=== PATIENT | male | born 1965 | race Caucasian/White ===

== ENCOUNTER → 2017-10-21 09:52 | Outpatient (POV) | payer OTHER, SELFPAY | PROVIDERS: Family Provider Family Medicine; PCP Family Medicine; Visit Provider Internal Medicine | DX: Z00.00 Encounter for general adult medical examination without abnormal findings (principal) ==

== ENCOUNTER → 2017-11-12 08:11 | Outpatient (CLI) | payer OTHER, SELFPAY ==
--- NOTE | 2017-11-12 08:26 | CT_ITS ---
CT chest wo con HISTORY: Emphysema, shortness of breath, ITS.REASON: ABNORMAL FINDINGS ON LUNG IMAGING ORDERING PHYSICIAN: Sergio Mckenzie MD PATIENT AGE: 52 years TECHNIQUE: Axial images obtained. Sagittal and coronal reformatted images are also generated and reviewed. CONTRAST: None COMPARISON: CT chest 02/04/2014 FINDINGS: Scattered small lymph nodes are present in the mediastinum not significantly changed. There is mild prominence of the pulmonary outflow tract and pulmonary artery/aorta ratio greater than 1 which may be seen with pulmonary arterial hypertension. The heart size is normal. No evidence of pericardial effusion. Centrilobular and paraseptal emphysematous changes are present with hyperinflation and bronchial thickening consistent with obstructive chronic bronchitis. There is biapical scarring which is slightly more prominent on the left than the right. Irregular opacity is present in the left apex measuring 14 mm transverse and 12 mm AP. This appears slightly more prominent than when compared to the previous study but could be related to progressive fibrotic change and the plane of imaging. Consider 6 month follow-up.. A calcified granulomas present in the left lung base. No lobar consolidation or collapse. No effusions. Upper abdominal images are unremarkable. No acute bony anomalies. IMPRESSION: 1. Centrilobular and paraseptal emphysematous changes with obstructive chronic bronchitis. 2. Biapical scarring. Slightly increasing size irregular opacity in the left apex which may limit due to progressive fibrotic change. Consider 6 month follow-up as a developing neoplasm such as a scar carcinoma would be included in the differential diagnosis. 3. Suspect pulmonary arterial hypertension
[2017-11-12 09:48] VITALS: BP 118/70; BP 140/80; PULSE 78; PULSE 98; RESP 18; O2SAT 95; O2SAT 98
[2017-11-12 09:49] VITALS: PULSE 73; PULSE 78
== END ==
PROVIDERS: Family Provider Family Medicine; PCP Family Medicine; Visit Provider Internal Medicine
DX: R91.8 Other nonspecific abnormal finding of lung field (principal); J43.9 Emphysema, unspecified; J44.9 Chronic obstructive pulmonary disease, unspecified; R06.02 Shortness of breath; Z71.6 Tobacco abuse counseling
CPT/HCPCS: 71250; 94060; 94618; 94640; 94726; 94729

== ENCOUNTER → 2018-02-13 10:14 | Outpatient (CLI) | payer OTHER, SELFPAY ==
--- NOTE | 2018-02-13 10:19 | XR_ITS ---
XR foot LT min 3V HISTORY: Pain following injury ITS.REASON: LEFT TOE INJURY ORDERING PHYSICIAN: LIA Oropeza PATIENT AGE: 52 years COMPARISON: None FINDINGS: There is a minimally displaced fracture involving the distal aspect of the proximal phalanx of the second toe. The distal fracture fragment is displaced laterally x 2 mm. There is minimal lateral angulation. Otherwise negative. IMPRESSION: Minimally displaced fracture involves the distal aspect of the proximal phalanx of the second toe
== END ==
PROVIDERS: PCP Family Medicine; Visit Provider Physician Assistant
DX: S99.922A Unspecified injury of left foot, initial encounter (principal)
CPT/HCPCS: 73630

== ENCOUNTER → 2018-11-17 13:52 | Outpatient (POV) | payer OTHER, SELFPAY | PROVIDERS: Visit Provider Internal Medicine | DX: Z00.00 Encounter for general adult medical examination without abnormal findings (principal) ==

== ENCOUNTER → 2019-04-02 13:04 | Outpatient (CLI) | payer OTHER, SELFPAY ==
--- NOTE | 2019-04-02 13:11 | CT_ITS ---
CT chest wo con INDICATION: Follow-up left apical lesion. ITS.REASON: EMPHYSEMA,ABN FINDINGS ON LUNG IMAGING ORDERING PHYSICIAN: Sergio Mckenzie MD PATIENT AGE: 53 years COMPARISON: ...) (11/12/2017 TECHNIQUE: Axial images obtained with sagittal and coronal reformats. All CT scans at the facility use one or more dose reduction, viz: automated exposure control, ma/kV adjustment per patient size (including targeted exams where dose is matched to indication, i.e. head), or iterative reconstruction technique. FINDINGS: The lung wen are somewhat hyperexpanded as noted previously. There are apical blebs bilaterally. The irregular left apical lesion is stable and unchanged and possibly slightly smaller size than the previous exam and most consistent with post inflammatory scarring. Findings of centrilobular emphysema are seen primarily in the upper lobes with a few areas of paraseptal emphysematous change noted as well. Again noted is a somewhat prominent main pulmonary artery raising possibility of pulmonary arterial hypertension. Cardiac size is normal. There is no acute pneumonic infiltrate and is no pleural fluid. There are stable mild multilevel degenerative changes of the thoracic spine. IMPRESSION: 1. Left apical lesion stable and possibly slightly decreased in size from the previous exam and most consistent with post inflammatory scarring. 2. Basically stable moderate emphysematous changes. 3. Main pulmonary artery and aorta ratio again greater than 1 suggesting possible pulmonary arterial hypertension
== END ==
PROVIDERS: PCP Family Medicine; Visit Provider Internal Medicine
DX: J43.9 Emphysema, unspecified (principal); R91.8 Other nonspecific abnormal finding of lung field
CPT/HCPCS: 71250

== ENCOUNTER → 2019-05-11 09:09 | Outpatient (POV) | payer OTHER, SELFPAY | PROVIDERS: Visit Provider Internal Medicine | DX: Z00.00 Encounter for general adult medical examination without abnormal findings (principal) ==

== ENCOUNTER → 2020-03-21 08:23 | Outpatient (CLI) | payer OTHER, SELFPAY ==
--- NOTE | 2020-03-21 08:36 | CT_ITS ---
PROCEDURE: CT LUNG SCREENING CLINICAL INDICATION: HX OF TOBACCO USE 38 pack year smoking history Quit smoking 7 years ago COMPARISON: CHESTWO CT chest wo con from 04/02/2019 TECHNIQUE: The exam was performed on a [employer] Light Speed [address] scanner using 2.90 mGy CTDI. A low dose helical CT CHEST was performed on a multi-detector scanner. All CT scans at the facility use one or more dose reduction, viz: automated exposure control, ma/kV adjustment per patient size (including targeted exams where dose is matched to indication, i.e. head), or iterative reconstruction technique. The LDCT was performed in a facility that meets the criteria for the screening program. Data regarding this exam was submitted to ACR which is an approved registry. The order for this exam indicates that it came as a result of a lung cancer screening counseling shard decision-making visit that included all the elements required of such a visit including smoking cessation. The radiologist interpreting this exam meets the CMS criteria for the LDCT lung cancer screening program. The exam is reported using the Lung-RADS classification scale and reported to the ACR registry. NOTE: This study was performed for the specific purposes of lung cancer screening and is not an alternative to diagnostic chest CT. RADIATION DOSE: CTDI vol(CT dose Index-volume) = 2.90mG DLP (Dose Length Product) = 124.81 mGcm Lung Rads Category: FINDINGS: COPD with centrilobular and paraseptal emphysema with scattered areas of scarring. Irregular opacity is present in the left apex consistent with an area of scarring similar to the previous exam. No new suspicious nodules. OTHER FINDINGS: Stable mildly prominent mediastinal lymph nodes. IMPRESSION: Lung rads category 2 benign Recommend annual LDCT Dictated by: Alex Arroyo MD 03/26/2020 09:52 Electronically signed by Alex Arroyo MD in [place] 03/26/2020 09:52
== END ==
PROVIDERS: PCP Family Medicine; Visit Provider Nurse Practitioner Family
DX: Z87.891 Personal history of nicotine dependence (principal); Z12.2 Encounter for screening for malignant neoplasm of respiratory organs

== ENCOUNTER 2020-12-12 22:25 | Emergency (ER) | payer OTHER, SELFPAY ==
[2020-12-12 22:27] VITALS: BP 128/70; PULSE 75; RESP 16; TEMP 36.6; O2SAT 97; BMI 28.0
--- NOTE | 2020-12-12 22:29 | HMH.EDGENADL ---
ED Disposition Clinical Impression: Ulna distal fracture Qualifiers: Encounter type: initial encounter Fracture type: closed Fracture morphology: other fracture Laterality: left Qualified Code(s): S52.692A - Other fracture of lower end of left ulna, initial encounter for closed fracture Disposition: Home, Self-Care Condition on Discharge: Good Referrals: Lillian Weldon MD [Primary Care Provider] - 3 days Ernestina Wooten MD [Physician] - 12/13/20 8:30 am (call in the AM) Time of Disposition: 23:03 - Critical Care Critical Care Time: No Attestation: On , the high probability of a clinically significant, sudden or life threatening deterioration of the following system(s) required my full and direct attention, intervention and personal management. The time I documented below is in addition to time spent performing reported procedures but includes the following listed in this critical care notation. Medical Decision Making - Medical Records Medical records reviewed: Yes: I reviewed the patient's medical records. - Reg Inquiry Pt receiving controlled substance: No Vital Signs: 12/12/20 22:27 Temperature 98 F Temperature Source Oral Pulse Rate [Right] 75 Respiratory Rate 16 Blood Pressure [Right Arm] 128/70 Blood Pressure Mean [Right Arm] 89 02 Sat by Pulse Oximetry 97 Oxygen Delivery Method Room Air Orders (Tests/Meds): ED MEDICATIONS Discontinued Medications Generic Name Dose Route Start Last Admin Trade Name Freq PRN Reason Stop Dose Admin Ketorolac Tromethamine 60 mg 12/12/20 22:36 12/12/20 22:38 Ketorolac 60mg/2ml Vial IM 12/12/20 22:37 60 mg ONCE ONE Administration ORDERS Category Date Time Status XR wrist LT min 3V Stat Exams 12/12/20 22:35 Ordered - Radiology Data #1 Image(s): Forearm Image Reviewed: Yes I reviewed the patient's radiology image Preliminary Findings: Abnormal Distal ulnar fracture Medical Decision Narrative: 55yo M evaluated for left wrist pain. Patient is in no acute distress on initial evaluation. X-rays reveal fracture of the distal ulna. Patient is placed in a volar splint. Provided orthopedics information for follow-up in the next 1 to 2 days. General Adult HPI - General Stated complaint: [id number]/30@2130 injury left wrist Time Seen by Provider: 12/12/20 22:29 Mode of Arrival: Ambulatory Source of Information: Patient - History of Present Illness HPI narrative: 55yo M evaluated emergency department secondary to left wrist pain. Patient is right-hand dominant. He reports he was breaking up a fight between 2 dogs when he accidentally hit his left arm on a countertop in the kitchen. He denies any other injury. Denies any dog bite or dog scratch. Prior to this, he was in his usual state of health. - Related Data Previous Rx's Medication Instructions Recorded albuterol sulfate 90 mcg/actuation 1 inh INHALATION QID PRN #8.5 g 11/20/20 aerosol inhaler fluticasone propionate 50 1 spray INTRANASAL DAILY #16 g 11/20/20 mcg/actuation nasal spray,suspension loratadine 10 mg tablet 10 mg PO DAILY PRN #30 tab 11/20/20 umeclidinium 62.5 mcg-vilanterol 1 inh INHALATION DAILY #60 each 11/20/20 25 mcg/actuation powdr for inhalation Allergies Allergy/AdvReac Type Severity Reaction Status Date / Time No Known Allergies Allergy Verified 11/20/20 11:07 [facility] History - Hepatitis A Screen Drug use history?: No Attestation statement:: This patient has been screened for Hepatitis A risk factors. I have reviewed the patient's past medical history: Yes Medical History: Reports:: Lung Disease Denies:: Diabetes Mellitus Type 1, Diabetes Mellitus Type 2, Seizures Other Surgeries: Yes: No Previous Surgery - Social History Smoking Status: Current every day smoker Alcohol Intake: never Occupational Status: employed Family Hx:: No significant family history ROS Obtained: Yes All systems reviewed & no additional compl
--- NOTE | 2020-12-12 22:35 | XR_ITS ---
PROCEDURE: XR WRIST LT MIN 3V CLINICAL INDICATION: accident COMPARISON: CR WRL3 WRIST-3 VIEWS-LT from 06/03/2016 CR WRL3 WRIST-3 VIEWS-LT from 06/17/2016 CR WRL3 WRIST-3 VIEWS-LT from 07/08/2016 FINDINGS: Undisplaced oblique fracture of the distal ulna is noted. No evidence of intra-articular extension into the distal radioulnar joint. The radiocarpal alignment is unremarkable. The visualized carpal bones are unremarkable. No significant degenerative changes. Soft tissue swelling adjacent to the ulnar aspect of the left IMPRESSION: Undisplaced oblique fracture of the left distal ulna. Results were discussed with Dr. Hernandez at 8:50 a.m. on December 13, 2020. Dictated by: Jill Aguirre 12/13/2020 08:53 Jill Aguirre in [place] 12/13/2020 08:53
[2020-12-12 23:01] VITALS: BP 123/74; PULSE 73; RESP 18; TEMP 36.8; O2SAT 98
== END 2020-12-12 23:18 | disposition home or self-care (01) ==
PROVIDERS: Emergency Provider Family Medicine; PCP Family Medicine
DX: S52.692A Other fracture of lower end of left ulna, initial encounter for closed fracture (principal); W22.09XA Striking against other stationary object, initial encounter; Y92.010 Kitchen of single-family (private) house as the place of occurrence of the external cause; F17.210 Nicotine dependence, cigarettes, uncomplicated
CPT/HCPCS: 29125; 73110; 96372; 99282

== ENCOUNTER → 2020-12-14 10:24 | Outpatient (CLI) | payer OTHER, SELFPAY ==
--- NOTE | 2020-12-14 10:27 | XR_ITS ---
PROCEDURE: XR FOREARM LT 2V CLINICAL INDICATION: left distal ulna fracture; IN CAST COMPARISON: CR XR WRIST LT MIN 3V from 12/12/2020 FINDINGS: The presence of cast limits evaluation for bony detail. The fracture noted on the prior study is not well visualized on the current limited study. The distal radioulnar joint appears unremarkable. Radiocarpal alignment is unremarkable within the limitations of the study. No other significant abnormality. IMPRESSION: No significant interval change within the limitations of the study. Dictated by: Jill Aguirre 12/14/2020 11:23 Jill Aguirre in [place] 12/14/2020 11:23
== END ==
PROVIDERS: PCP Family Medicine; Visit Provider Orthopaedic Surgery
DX: S52.609A Unspecified fracture of lower end of unspecified ulna, initial encounter for closed fracture (principal)
CPT/HCPCS: 73090

== ENCOUNTER → 2021-01-10 09:10 | Outpatient (CLI) | payer OTHER, SELFPAY ==
--- NOTE | 2021-01-10 09:15 | XR_ITS ---
PROCEDURE: XR WRIST RT MIN 3V CLINICAL INDICATION: rt wrist pain COMPARISON: CR WRL3 WRIST-3 VIEWS-LT from 06/03/2016 CR WRL3 WRIST-3 VIEWS-LT from 06/17/2016 CR WRL3 WRIST-3 VIEWS-LT from 07/08/2016 CR XR WRIST LT MIN 3V from 12/12/2020 FINDINGS: No fracture or dislocation. No lytic or blastic change. There is normal mineralization. The joint spaces are well-preserved. No significant degenerative/arthritic changes. No erosive changes evident. Other findings:None. IMPRESSION: No acute findings. Dictated by: Alex Arroyo MD 01/10/2021 09:40 Alex Arroyo MD in [place] 01/10/2021 09:40
--- NOTE | 2021-01-10 09:15 | XR_ITS ---
PROCEDURE: XR FOREARM LT 2V CLINICAL INDICATION: Closed fracture of distal end of left ulna COMPARISON: CR XR FOREARM LT 2V from 12/14/2020 FINDINGS: Cast has been removed. Nondisplaced oblique fracture once again noted involving the distal ulna. The wrist is rotated. The radial ulnar joint is not well delineated. Other findings:None. IMPRESSION: Interval removal of the cast. Nondisplaced oblique fracture distal ulna Dictated by: Alex Arroyo MD 01/10/2021 09:42 Alex Arroyo MD in [place] 01/10/2021 09:42
== END ==
PROVIDERS: PCP Family Medicine; Visit Provider Orthopaedic Surgery
DX: S52.602A Unspecified fracture of lower end of left ulna, initial encounter for closed fracture (principal); M25.531 Pain in right wrist
CPT/HCPCS: 73090; 73110

== ENCOUNTER 2021-01-10 10:15 | Outpatient (RCR) | payer OTHER, SELFPAY | END 2021-01-19 14:04 | disposition home or self-care (01) | LOC: OT 10:15 | PROVIDERS: Visit Provider Orthopaedic Surgery | DX: S52.602D Unspecified fracture of lower end of left ulna, subsequent encounter for closed fracture with routine healing (principal) | CPT/HCPCS: 97763 ==

== ENCOUNTER 2021-02-19 10:00 | Outpatient (RCR) | payer OTHER, SELFPAY ==
--- NOTE | 2021-01-15 09:45 | HMH.OTOPEV ---
OT Inpatient Evaluation Rehab OT Outpatient Eval Start: 01/15/21 09:29 Freq: Status: Active Protocol: Document 01/15/21 09:29 GLENDA (Rec: 01/15/21 09:45 BERNYYUE [id number]) Electronically Signed By Leslie Guerin OT 01/15/21 09:29 Outpatient Therapy Subjective History Subjective History LT distal ulna fracture: Details: This 55 year old right hand dominant male patient is seen in the office today for follow-up for his left distal ulna fracture. He sustained the injury about 4 weeks ago for which he is being treated nonoperatively in a long-arm cast. He is out of the cast today and had a check x-ray. He reports no problems with the cast. He says the elbow and wrist feel weird and stiff. He says he is doing well otherwise and reports no pain or discomfort. He reports no distal numbness or tingling. He is a former smoker. He has COPD. He is disabled. [facility] History *Medical History I have reviewed the patient's past medical history: Yes Medical History: Reports: Chronic Obstructive Pulmonary Disease (COPD) and Lung Disease Other Medical History: Reports Arthritis Chief Complaint Pain,Stiff,Weakness,Decreased Progress Man Strength Symptom Type Ache,Tingling Symptoms Relieved By OTC Meds Symptoms Aggravated By Physical Activity Prior Functional Limitations None Current Functional Limitations Lifting,Recreation Activity Symptom Description Intermittent Level of pain today (0-10) 0 Pain scale - at its best (0-10) 0 Pain scale - at its worst (0-10) 6 Wrist/Hand Eval Wrist Range of Motion Left Wrist Extension Active Range of Motion ( 52 degrees) Wrist Flexion Active Range of Motion ( 60 degrees) Wrist Radial Deviation Active Range of 15 Motion (degrees) Wrist Ulnar Deviation Active Range of 22 Motion (degrees) Forearm Supin
== END 2021-02-19 10:05 | disposition home or self-care (01) ==
LOC: OT 10:00
PROVIDERS: PCP Family Medicine; Visit Provider Orthopaedic Surgery
DX: S52.692D Other fracture of lower end of left ulna, subsequent encounter for closed fracture with routine healing (principal)
CPT/HCPCS: 97014; 97110; 97140; 97165; G0283

== ENCOUNTER → 2021-02-21 09:12 | Outpatient (CLI) | payer OTHER, SELFPAY ==
--- NOTE | 2021-02-21 09:15 | XR_ITS ---
PROCEDURE: XR WRIST LT MIN 3V CLINICAL INDICATION: distal ulna fracture follow up; out of brace Follow-up fracture COMPARISON: CR WRL3 WRIST-3 VIEWS-LT from 06/17/2016 CR WRL3 WRIST-3 VIEWS-LT from 07/08/2016 CR XR WRIST LT MIN 3V from 12/12/2020 CR XR WRIST RT MIN 3V from 01/10/2021 FINDINGS: There is an oblique nondisplaced distal ulnar fracture. There is some minimal callus formation noted. Fracture line is still visible. No other significant anomalies. Other findings:None. IMPRESSION: Healing nondisplaced distal ulnar fracture Dictated by: Alex Arroyo MD 02/21/2021 09:49 Alex Arroyo MD in [place] 02/21/2021 09:49
== END ==
PROVIDERS: PCP Family Medicine; Visit Provider Orthopaedic Surgery
DX: S52.609A Unspecified fracture of lower end of unspecified ulna, initial encounter for closed fracture (principal)
CPT/HCPCS: 73110

== ENCOUNTER → 2021-04-18 07:11 | Outpatient (CLI) | payer OTHER, SELFPAY ==
--- NOTE | 2021-04-18 07:20 | CT_ITS ---
PROCEDURE: CT LUNG SCREENING CLINICAL INDICATION: LDCT Former smoker Quit smoking 13 years ago 30 pack year smoking history COMPARISON: CT CHWO CT CHEST W/O CONTRAST from 02/04/[address] LUNG SCREENING from 03/21/2020 TECHNIQUE: The exam was performed on a [employer] Speed [address] scanner using 2.90 mGy CTDI. A low dose helical CT CHEST was performed on a multi-detector scanner. All CT scans at the facility use one or more dose reduction, viz: automated exposure control, ma/kV adjustment per patient size (including targeted exams where dose is matched to indication, i.e. head), or iterative reconstruction technique. The LDCT was performed in a facility that meets the criteria for the screening program. Data regarding this exam was submitted to ACR which is an approved registry. The order for this exam indicates that it came as a result of a lung cancer screening counseling shard decision-making visit that included all the elements required of such a visit including smoking cessation. The radiologist interpreting this exam meets the CMS criteria for the LDCT lung cancer screening program. The exam is reported using the Lung-RADS classification scale and reported to the ACR registry. NOTE: This study was performed for the specific purposes of lung cancer screening and is not an alternative to diagnostic chest CT. RADIATION DOSE: CTDI vol(CT dose Index-volume) = 2.90mG DLP (Dose Length Product) = 126.89 mGcm FINDINGS: Changes of COPD with centrilobular and paraseptal emphysematous changes. There are scattered bulla similar to the previous exam. Scattered areas of scarring are noted. A 5 x 3 mm nodular opacity is present in the right lower lobe just posterior to a branch of the anterior basilar segmental artery. This is unchanged dating back to 02/04/2014. Irregular parenchymal opacity is present in the left apex also stable consistent with an area of scarring. OTHER FINDINGS: There is an old sternal fracture noted involving the manubrium inferiorly. Small mediastinal lymph nodes unchanged. IMPRESSION: Lung-RADS Category 2 Benign Appearance or Behavior Follow-up: Continue annual screening with LDCT in 12 months Dictated by: Alex Arroyo MD 04/23/2021 09:06 Alex Arroyo MD in [place] 04/23/2021 09:06
== END ==
PROVIDERS: PCP Family Medicine; Visit Provider Internal Medicine Pulmonary Disease
DX: Z87.891 Personal history of nicotine dependence (principal); Z12.2 Encounter for screening for malignant neoplasm of respiratory organs; R06.09 Other forms of dyspnea
CPT/HCPCS: 71271; 94060; 94726; 94729

== ENCOUNTER → 2022-05-29 12:04 | Outpatient (CLI) | payer OTHER, SELFPAY ==
[2022-05-29 13:28] LABS: Basophils # 0.4 K/mm3 (0-0.2); Basophils % 4.6 % (0.1-2.0); Eosinophils # 0.5 K/mm3 (0.0-0.4); Eosinophils % 5.7 % (0.1-12.0); Hematocrit 49.1 % (42.0-52.0); Hemoglobin 16.3 g/dL (14.1-18.0); Lymphocytes # 2.2 K/mm3 (0.7-4.5); Lymphocytes % 25.9 % (10-50); Mean Corpuscular HGB Conc 33.3 g/dL (31.8-35.4); Mean Corpuscular Hemoglobin 33.4 pg (27.0-31.2); Mean Corpuscular Volume 100.4 fl (80-94); Mean Platelet Volume 7.8 fl (7.4-10.4); Monocytes # 0.8 K/mm3 (0.1-1.0); Monocytes % 8.7 % (1.7-9.3); Neutrophils # 5.2 K/mm3 (1.8-7.8); Neutrophils % 59.7 % (37.0-80.0); Platelet Count 416 K/mm3 (142-424); Red Blood Count 4.89 M/mm3 (4.60-6.20); Red Cell Distribution Width 13.6 % (11.5-17.5); White Blood Count 8.6 K/mm3 (4.8-10.8)
== END ==
PROVIDERS: PCP Family Medicine; Visit Provider Family Medicine
DX: J40 Bronchitis, not specified as acute or chronic (principal)
CPT/HCPCS: 36415; 85025

== ENCOUNTER → 2022-05-30 10:00 | Outpatient (CLI) | payer OTHER, SELFPAY | PROVIDERS: PCP Family Medicine; Visit Provider Family Medicine | DX: U07.1 COVID-19 (principal) | CPT/HCPCS: C9803; U0003; U0005 ==

== ENCOUNTER 2022-07-27 11:42 | Emergency (ER) | payer OTHER, SELFPAY ==
[2022-07-27 11:43] VITALS: BP 146/91; PULSE 90; RESP 22; TEMP 36.7; O2SAT 98; BMI 18.7
--- NOTE | 2022-07-27 11:54 | ECG_ITS ---
APPROVED REPORT Exam: Resting ECG HR:85 bpm ECG Measurements Heart Rate 85 AXES NH 119 P 83 QRSd 100 QRS 92 QT 363 T 81 QTc 405 Conclusion SINUS RHYTHM WITH SINUS ARRHYTHMIA WITH SHORT NH INTERVAL BORDERLINE RIGHT AXIS DEVIATION [QRS AXIS > 90] BORDERLINE ECG UNCONFIRMED REPORT Electronically signed by : Oscar Patterson MD 07/29/2022 21:13:47
--- NOTE | 2022-07-27 12:12 | PC.NURSE ---
ED MD AT BEDSIDE FOR EVALUATION
--- NOTE | 2022-07-27 12:13 | XR_ITS ---
PROCEDURE INFORMATION: Exam: XR Chest Exam date and time: 07/27/2022 12:32 PM Age: 56 years old Clinical indication: Shortness of breath; Additional info: Concern for pnemonia-- extremely long lungs TECHNIQUE: Imaging protocol: Radiologic exam of the chest. Views: 1 view. COMPARISON: CHESTWO CT chest wo con 04/02/2019 1:46 PM FINDINGS: Lungs: Bilateral hyperinflation is present. No focal pneumonia or pneumothorax. Centrilobular emphysematous changes noted bilaterally. Pleural spaces: There are no pleural effusions present. Apical pleural thickening noted bilaterally. Heart/Mediastinum: Unremarkable. No cardiomegaly. Bones/joints: The thoracic spine demonstrates mild degenerative changes at multiple levels. IMPRESSION: 1. Bilateral hyperinflation is present. 2. No focal pneumonia or pneumothorax. 3. Centrilobular emphysematous changes noted bilaterally.
--- NOTE | 2022-07-27 13:30 | PC.NURSE ---
1330 ROUNDED ON PT AT THIS TIME. NO NEEDS VOICED
[2022-07-27 13:37] VITALS: BP 144/82; PULSE 83; RESP 18; O2SAT 96
--- NOTE | 2022-07-27 13:48 | PC.NURSE ---
RESPIRATORY AT BEDSIDE
[2022-07-27 13:52] VITALS: PULSE 81
[2022-07-27 15:08] VITALS: BP 154/87; PULSE 80; RESP 18; TEMP 36.6; O2SAT 99
--- NOTE | 2022-07-27 16:31 | HMH.EDGENADL ---
Discharge Plan Disposition Patient Disposition: Home, Self-Care Condition: Good Prescriptions Prescriptions: New prednisone 50 mg tablet 50 mg PO DAILY 5 Days Qty: 5 0RF doxycycline hyclate 100 mg tablet 100 mg PO BID 5 Days Qty: 10 0RF No Action Anoro Ellipta 62.5-25 mcg/actuation blister with device 1 inh INHALATION DAILY Qty: 60 6RF albuterol sulfate 90 mcg/actuation HFA aerosol inhaler 1 inh INHALATION QID PRN (Reason: shortness of breath or wheezing) Qty: 8.5 12RF fluticasone propionate [Flonase Allergy Relief] 50 mcg/actuation spray,suspension 1 spray INTRANASAL DAILY Qty: 16 4RF Rx Instructions: administer into each nostril loratadine [Claritin] 10 mg tablet 10 mg PO DAILY PRN (Reason: allergy symptoms) Qty: 30 4RF Referrals Follow up/Referrals: Lillian Weldon MD [Primary Care Provider] - See instructions Clinical Impressions Clinical Impression: COPD exacerbation Instructions Patient Instructions: DI for Chronic Obstructive Pulmonary Disease Discharge ED Provider: Chon Spencer General Adult HPI General Chief complaint: Shortness of Breath/Dyspnea Stated complaint: sob, COPD Time Seen by Provider: 07/27/22 12:00 Mode of Arrival: Ambulatory Source of Information: Patient and Spouse Limitations: No Limitations Description of Symptoms (Recalled from ER Triage Doc. by RN): Patient states that he has a history of COPD and was diagnosed with COVID 1 to 1.5 month(s) ago. states that he has been short of breath for the past week. states that he is unable to walk from room to room without becoming more short of breath. states that symptoms are unchanged for the past 3 weeks. during triage room air sat was noted to be 98%. patient states that he has been coughing up clear stuff . History of Present Illness HPI narrative: Patient is a 56-year-old male with a past medical history of COPD who presents with concern for cough and shortness of breath. He says that he has been using his inhalers but they have not been helping. He states that for the last 3 weeks he has been having difficulty walking around his house because he starts to get short of breath. He says that he had COVID about a month to month and a half ago where he thinks a lot of his symptoms have started since then. He does not wear any oxygen. He does have clear sputum production and denies any changes of this. Denies any fever or chills. Denies any chest pain. Denies any leg swelling. Related Data Previous Rx's Medication Instructions Recorded albuterol sulfate 90 mcg/actuation 1 inh inhalation QID PRN shortness 11/20/20 aerosol inhaler of breath or wheezing #8.5 grams fluticasone propionate 50 1 spray intranasal DAILY #16 grams 11/20/20 mcg/actuation nasal spray,suspension (Flonase Allergy Relief) loratadine 10 mg tablet (Claritin) 10 mg PO DAILY PRN allergy 11/20/20 symptoms #30 tabs umeclidinium 62.5 mcg-vilanterol 1 inh inhalation DAILY #60 ea 11/20/20 25 mcg/actuation powdr for inhalation (Anoro Ellipta) doxycycline hyclate 100 mg tablet 100 mg PO BID 5 days #10 tabs 07/27/22 prednisone 50 mg tablet 50 mg PO DAILY 5 days #5 tabs 07/27/22 Allergies Allergy/AdvReac Type Severity Reaction Status Date / Time No Known Allergies Allergy Verified 04/24/21 10:00 [facility] Social History Smoking Status: Former smoker alcohol intake: never current occupational status: disabled Travel in the last 8 weeks: None ROS Obtained: Yes All systems reviewed & no additional complaints except as documented A 14 point review of system was obtained and otherwise negative except per HPI Physical Exam General General appearance: alert and in no apparent distress Head Head exam: atraumatic, normocephalic and normal inspection Eye Eye exam: Present normal appearance, PERRL and EOMI ENT ENT exam: Present normal exam, normal oropharynx, mucous membranes moist, TM's normal
== END 2022-07-27 15:10 | disposition home or self-care (01) ==
PROVIDERS: Emergency Provider Student in an Organized Health Care Education/Training Program; PCP Family Medicine
DX: J44.1 Chronic obstructive pulmonary disease with (acute) exacerbation (principal); Z86.16 Personal history of COVID-19; Z87.891 Personal history of nicotine dependence
CPT/HCPCS: 71045; 93005; 94640; 96365; 99284; J3475

== ENCOUNTER 2022-08-05 03:09 | Emergency (ER) | payer OTHER, SELFPAY ==
[2022-08-05] VITALS (8 sets, daily range): BP systolic 151–194; BP diastolic 88–103; PULSE 98–116; RESP 18–22; TEMP 36.6; O2SAT 90–99; BMI 19.0
--- NOTE | 2022-08-05 03:30 | ECG_ITS ---
APPROVED REPORT Exam: Resting ECG HR:117 bpm ECG Measurements Heart Rate 117 AXES IA 104 P 82 QRSd 97 QRS 93 QT 291 T 50 QTc 360 Conclusion SINUS TACHYCARDIA WITH SHORT IA INTERVAL BORDERLINE RIGHT AXIS DEVIATION [QRS AXIS > 90] NONSPECIFIC T-WAVE ABNORMALITY ABNORMAL RHYTHM ECG UNCONFIRMED REPORT Electronically signed by : Oscar Patterson MD 08/05/2022 19:45:26
--- NOTE | 2022-08-05 03:32 | XR_ITS ---
PROCEDURE INFORMATION: Exam: XR Chest Exam date and time: 08/05/2022 3:37 AM Age: 56 years old Clinical indication: Shortness of breath; Additional info: Short of air TECHNIQUE: Imaging protocol: Radiologic exam of the chest. Views: 2 views. COMPARISON: CR XR CHEST PORTABLE 07/27/2022 12:32 PM FINDINGS: Lungs: Unremarkable. No consolidation. Pleural spaces: Unremarkable. No pleural effusion. No pneumothorax. Heart/Mediastinum: Unremarkable. No cardiomegaly. Bones/joints: Unremarkable. IMPRESSION: No acute findings.
--- NOTE | 2022-08-05 03:40 | HMH.EDSOB ---
Discharge Plan Disposition Patient Disposition: Home, Self-Care Prescriptions Prescriptions: New prednisone [prednisone] 20 mg tablet 20 mg PO BID Qty: 10 0RF oseltamivir [Tamiflu] 75 mg capsule 75 mg PO BID 5 Days Qty: 10 0RF No Action Anoro Ellipta 62.5-25 mcg/actuation blister with device 1 inh INHALATION DAILY Qty: 60 6RF albuterol sulfate 90 mcg/actuation HFA aerosol inhaler 1 inh INHALATION QID PRN (Reason: shortness of breath or wheezing) Qty: 8.5 12RF fluticasone propionate [Flonase Allergy Relief] 50 mcg/actuation spray,suspension 1 spray INTRANASAL DAILY Qty: 16 4RF Rx Instructions: administer into each nostril loratadine [Claritin] 10 mg tablet 10 mg PO DAILY PRN (Reason: allergy symptoms) Qty: 30 4RF prednisone 50 mg tablet 50 mg PO DAILY 5 Days Qty: 5 0RF doxycycline hyclate 100 mg tablet 100 mg PO BID 5 Days Qty: 10 0RF Referrals Follow up/Referrals: Lillian Weldon MD [Primary Care Provider] - See instructions Clinical Impressions Clinical Impression: Acute exacerbation of chronic obstructive airways disease, Influenza A Instructions Patient Instructions: DI for Chronic Obstructive Pulmonary Disease, DI for Influenza -- Adult Discharge ED Provider: Jasson Barger Resp/SOB HPI General Chief Complaint: Shortness of Breath/Dyspnea Stated Complaint: SOA,nausea Time Seen by Provider: 08/05/22 03:40 Mode of Arrival: Ambulatory Source of Information: Patient and Spouse Limitations: No Limitations Description of Symptoms (Recalled from ER Triage Doc. by RN): pt stated that he hasnt fellt right since yesterday. pt states he has been having flu like symptoms and that he couldnt laydown to sleep tonight because he was having fluid or something on his chest. the pt does have copd and has had to come to the ER for the same issue a few weeks back the pt states that he went to see his pcp but no meds or supplemental o2 were given History of Present Illness flu like sx over the last few days with hx of copd Complaint: shortness of breath and cough Onset (ago): day(s) Severity: moderate Consistency/Duration: intermittent Known history of: COPD Associated symptoms: denies other symptoms Related Data Home oxygen amount: none Previous Rx's Medication Instructions Recorded albuterol sulfate 90 mcg/actuation 1 inh inhalation QID PRN shortness 11/20/20 aerosol inhaler of breath or wheezing #8.5 grams fluticasone propionate 50 1 spray intranasal DAILY #16 grams 11/20/20 mcg/actuation nasal spray,suspension (Flonase Allergy Relief) loratadine 10 mg tablet (Claritin) 10 mg PO DAILY PRN allergy 11/20/20 symptoms #30 tabs umeclidinium 62.5 mcg-vilanterol 1 inh inhalation DAILY #60 ea 11/20/20 25 mcg/actuation powdr for inhalation (Anoro Ellipta) doxycycline hyclate 100 mg tablet 100 mg PO BID 5 days #10 tabs 07/27/22 prednisone 50 mg tablet 50 mg PO DAILY 5 days #5 tabs 07/27/22 oseltamivir 75 mg capsule (Tamiflu) 75 mg PO BID 5 days #10 caps 08/05/22 prednisone 20 mg tablet 20 mg PO BID #10 tabs 08/05/22 Allergies Allergy/AdvReac Type Severity Reaction Status Date / Time No Known Allergies Allergy Verified 04/24/21 10:00 [facility] Social History Smoking Status: Former smoker alcohol intake: never current occupational status: disabled Travel in the last 8 weeks: None ROS Obtained: Yes All systems reviewed & no additional complaints except as documented Physical Exam General General appearance: alert Head Head exam: normocephalic Eye Eye exam: Present PERRL and EOMI ENT ENT exam: Present mucous membranes moist Neck Neck exam: Present trachea midline Respiratory Respiratory exam: Absent respiratory distress Cardiovascular Cardiovascular exam: Present regular rate Abdominal Exam Abdominal exam: Present soft Extremities Exam Extremities exam: Present full ROM Neurological Exam Neurological exam: Present alert, o
[2022-08-05 03:42] LABS: ABG Base Excess -2.6 mmol/L (-2.4-2.3); ABG HCO3 21.2 mmhg (22.0-26.0); ABG Oxygen Saturation 90 % (90-100); ABG PCO2 30.2 mmhg (35.0-45.0); ABG PH 7.46 mmol/L (7.35-7.45); ABG PO2 51.4 mmhg (80-100); ABG TCO2 22.1 mmhg (23-27)
[2022-08-05 03:43] LABS: Allen's Test Y; Oxygen RA %; Source Right Radial
[2022-08-05 03:44] LABS: Coronavirus 19, PCR Not Detected (NotDetected); Influenza B, PCR Not Detected (NotDetected)
[2022-08-05 03:44] LABS: Basophils # 0.1 K/mm3 (0-0.2); Basophils % 0.5 % (0.1-2.0); Eosinophils # 0.3 K/mm3 (0.0-0.4); Hematocrit 50.4 % (42.0-52.0); Hemoglobin 16.4 g/dL (14.1-18.0); Lymphocytes # 0.5 K/mm3 (0.7-4.5); Lymphocytes % 3.4 % (10-50); Mean Corpuscular HGB Conc 32.6 g/dL (31.8-35.4); Mean Corpuscular Hemoglobin 32.7 pg (27.0-31.2); Mean Corpuscular Volume 100.4 fl (80-94); Mean Platelet Volume 7.5 fl (7.4-10.4); Monocytes # 0.8 K/mm3 (0.1-1.0); Monocytes % 5.4 % (1.7-9.3); Neutrophils # 13.4 K/mm3 (1.8-7.8); Neutrophils % 88.6 % (37.0-80.0); Platelet Count 425 K/mm3 (142-424); Red Blood Count 5.02 M/mm3 (4.60-6.20); Red Cell Distribution Width 13.2 % (11.5-17.5); White Blood Count 15.1 K/mm3 (4.8-10.8)
[2022-08-05 03:48] LABS: MANUAL DIFFERENTIAL MANUAL DIFFERENTIAL (MANUAL DIFF)
[2022-08-05 03:50] LABS: Chloride 99 mmol/L (98-107); Sodium 131 mmol/L (136-145)
[2022-08-05 03:53] LABS: Alanine Aminotransferase 51 U/L (12-78); Albumin Level 4.2 g/dl (3.5-5.0); Albumin/Globulin Ratio 1.6 (1.1-1.8); Alkaline Phosphatase 78 U/L (38-126); Aspartate Amino Transferase 71 U/L (17-59); Bilirubin,Total 0.3 mg/dl (0.2-1.3); Blood Urea Nitrogen 8 mg/dl (9-20); Carbon Dioxide 25 mmol/L (22.0-30.0); Creatinine Clearance Estimated 92 mL/min (50-200); Estimated Glomerular Filt Rate 100 ml/min (>60); GFR (African American) 121 ML/MIN (>60); Globulin 2.6 g/dL (1.3-3.2); Total Protein,Serum 6.8 g/dl (6.3-8.2)
[2022-08-05 03:54] LABS: Calcium 9.1 mg/dl (8.4-10.2); Glucose 98 mg/dl (74-100)
[2022-08-05 03:57] LABS: Eosinophils % 1 % (0-3); Lymphocytes % 5 % (10-50); Macrocytosis 1+; Neutrophils % 86 % (42-76); Platelet Estimate Normal; Total Cells Counted 100
[2022-08-05 04:07] LABS: Troponin I < 0.01 ng/ml (0.00-0.034)
[2022-08-05 04:07] LABS: Influenza A, PCR Detected (NotDetected)
== END 2022-08-05 06:18 | disposition home or self-care (01) ==
PROVIDERS: Emergency Provider Emergency Medicine; PCP Family Medicine
DX: J10.1 Influenza due to other identified influenza virus with other respiratory manifestations (principal); J44.1 Chronic obstructive pulmonary disease with (acute) exacerbation
CPT/HCPCS: 71046; 80053; 82803; 83605; 84484; 85007; 85025; 87040; 93005; 94640; 96365; 96375; 99285; C9803; J3475; U0003; U0005

== ENCOUNTER 2022-08-05 17:39 | Inpatient (IN) | payer OTHER, SELFPAY ==
[2022-08-05] VITALS (11 sets, daily range): BP systolic 128–158; BP diastolic 84–101; PULSE 120–143; RESP 22–30; TEMP 36.7–37.1; O2SAT 71–97; BMI 19.0; BMI 17.3
--- NOTE | 2022-08-05 17:41 | XR_ITS ---
PROCEDURE INFORMATION: Exam: XR Chest Exam date and time: 08/05/2022 6:00 PM Age: 56 years old Clinical indication: Shortness of breath; Additional info: Cough, short of breath TECHNIQUE: Imaging protocol: Radiologic exam of the chest. Views: 1 view. COMPARISON: CR XR CHEST 2V 08/05/2022 3:37 AM FINDINGS: Lungs: Lungs are hyperlucent. There is prominence of the interstitial markings similar to prior exam. No pneumonia. Pleural spaces: Unremarkable. No pleural effusion. No pneumothorax. Heart/Mediastinum: Unremarkable. No cardiomegaly. Bones/joints: Unremarkable. IMPRESSION: Chronic interstitial changes. No evidence of pneumonia.
--- NOTE | 2022-08-05 17:41 | HMH.EDGENADL ---
Discharge Plan Disposition Patient Disposition: Admitted As Inpatient Chief Complaint: Shortness of Breath/Dyspnea Clinical Impressions Clinical Impression: Influenza A, Acute hypoxemic respiratory failure, COPD (chronic obstructive pulmonary disease) Discharge ED Provider: Maria Elena Abernathy Adult HPI General Chief complaint: Shortness of Breath/Dyspnea Stated complaint: SOA Time Seen by Provider: 08/05/22 17:40 Mode of Arrival: EMS Source of Information: Patient Limitations: No Limitations History of Present Illness HPI narrative: 56-year-old male presenting to the emergency department with cough, shortness of breath. Symptoms started 2 to 3 days ago. He felt generally unwell, malaise, cough, shortness of breath. Symptoms got much worse today. Feels like he is breathing fast, unable to get enough air. Has fever and chills. Called 911. When EMS arrived he was in respiratory distress. Oxygen saturation was in the 70s on room air. They placed him on nasal cannula. Administered 2 duo nebs and transported to the emergency department. He has a history of COPD. Due to tobacco smoke. Was diagnosed with influenza A yesterday at our emergency department. He denies chest pain. Related Data Home Medications Medication Instructions Recorded Confirmed fluticasone propionate 50 1 spray intranasal DAILY COPD 08/05/22 08/05/22 mcg/actuation nasal spray,suspension (Flonase Allergy Relief) oseltamivir 75 mg capsule (Tamiflu) 75 mg PO BID COPD 08/05/22 prednisone 20 mg tablet 20 mg PO BID COPD 08/05/22 umeclidinium 62.5 mcg-vilanterol 1 inh inhalation DAILY COPD 08/05/22 08/05/22 25 mcg/actuation powdr for inhalation (Anoro Ellipta) Allergies Allergy/AdvReac Type Severity Reaction Status Date / Time No Known Allergies Allergy Verified 04/24/21 10:00 [facility] Social History Smoking Status: Former smoker alcohol intake: never current occupational status: disabled Travel in the last 8 weeks: None ROS Obtained: Yes All systems reviewed & no additional complaints except as documented Constitutional Constitutional: Reports body ache, Reports chills, Reports fever(s), Denies headache(s) and Reports malaise Eyes Eyes: Denies blind spots and Denies blurry vision ENT Ears, Nose, Mouth, and Throat: Denies dizziness, Denies headache(s), Denies neck pain, Reports sinus pressure and Denies sore throat Cardiovascular Cardiovascular: Reports dyspnea, Denies edema and Denies leg edema Respiratory Respiratory: Reports chest congestion, Reports cough, Reports dyspnea and Reports wheezing Gastrointestinal Gastrointestingal: Denies diarrhea, nausea or vomiting Genitourinary Male Genitourinary: Denies flank pain and Denies hematuria Musculoskeletal Musculoskeletal: Denies back pain, Denies neck pain and Denies numbness Integumentary/Breasts Skin/Breast: Denies redness and Denies rash Neurologic Neurologic: Denies dizziness, Denies headache(s) and Denies numbness Allergic/Immunologic Allergic/Immunologic: Denies urticaria and Reports wheezing Physical Exam General General appearance: alert, anxious and in distress Head Head exam: atraumatic and normocephalic Eye Eye exam: Present normal appearance; Absent scleral icterus or conjunctival redness ENT ENT exam: Present normal exam and mucous membranes moist Neck Neck exam: Present normal inspection Respiratory Respiratory exam: Present respiratory distress, wheezes and accessory muscle use Cardiovascular Cardiovascular exam: Present normal rhythm and tachycardia Abdominal Exam Abdominal exam: Present soft; Absent distention or tenderness Extremities Exam Extremities exam: Present normal inspection Neurological Exam Neurological exam: Present alert and oriented X3 Psychiatric Psychiatric exam: Present normal affect and normal mood Skin Skin exam: Present warm and dry Medical Decision Making Medical Records Medical records reviewed: Yes I uzma
--- NOTE | 2022-08-05 17:49 | PC.NURSE ---
PT BROUGHT IN BY EMS , THEY SAID SATS WERE 70 ON RA , THEY GAVE HIM 2 DUO NEBS ENROUTE SATS CAME UP TO 96% , UPON THEIR ARRIVAL TO ER PT WAS ON RA WITH A O2 SAT OF 71% WITH LABORED RESP PT PLACED ON HIGH FLOW O2 SATS CAME BACK UP PT WAS FINALLY PLACED ON 02 @ 5 LPM WITH O2 SAT 93% RESTING COMFORTABLY
[2022-08-05 17:57] LABS: Basophils # 0.1 K/mm3 (0-0.2); Basophils % 0.4 % (0.1-2.0); Eosinophils % 0.2 % (0.1-12.0); Hematocrit 48.1 % (42.0-52.0); Hemoglobin 15.7 g/dL (14.1-18.0); Lymphocytes # 0.5 K/mm3 (0.7-4.5); Lymphocytes % 2.6 % (10-50); Mean Corpuscular HGB Conc 32.7 g/dL (31.8-35.4); Mean Corpuscular Hemoglobin 33.5 pg (27.0-31.2); Mean Corpuscular Volume 102.3 fl (80-94); Mean Platelet Volume 7.7 fl (7.4-10.4); Monocytes # 0.8 K/mm3 (0.1-1.0); Monocytes % 4.2 % (1.7-9.3); Neutrophils # 16.8 K/mm3 (1.8-7.8); Neutrophils % 92.6 % (37.0-80.0); Platelet Count 441 K/mm3 (142-424); Red Cell Distribution Width 13.2 % (11.5-17.5); White Blood Count 18.1 K/mm3 (4.8-10.8)
[2022-08-05 18:06] LABS: MANUAL DIFFERENTIAL MANUAL DIFFERENTIAL (MANUAL DIFF)
[2022-08-05 18:15] LABS: Chloride 96 mmol/L (98-107); Potassium 4.1 mmoL/L (3.5-5.1); Sodium 130 mmol/L (136-145)
[2022-08-05 18:17] LABS: Blood Urea Nitrogen 9 mg/dl (9-20); Creatinine Clearance Estimated 5 mL/min (50-200); Estimated Glomerular Filt Rate 139 ml/min (>60); GFR (African American) 168 ML/MIN (>60)
[2022-08-05 18:18] LABS: Alanine Aminotransferase 55 U/L (12-78); Albumin Level 4.5 g/dl (3.5-5.0); Albumin/Globulin Ratio 1.6 (1.1-1.8); Alkaline Phosphatase 75 U/L (38-126); Anion Gap 15.1 mEq/L (5-15); Aspartate Amino Transferase 62 U/L (17-59); Calcium 9.3 mg/dl (8.4-10.2); Carbon Dioxide 23 mmol/L (22.0-30.0); Globulin 2.9 g/dL (1.3-3.2); Glucose 208 mg/dl (74-100); Total Protein,Serum 7.4 g/dl (6.3-8.2)
[2022-08-05 18:18] LABS: VBG Base Excess -7.5 mmol/L (-2.4-2.3); VBG HCO3 19.8 mmol/L (23-30); VBG Oxygen Saturation 96.7 % (50-70); VBG PCO2 46.4 mmol/L (35-51); VBG PH 7.25 mmol/L (7.31-7.41); VBG PO2 88.6 mmol/L (28-40); VBG Total CO2 21.2 mmol/L (23-27)
[2022-08-05 18:21] LABS: Bilirubin,Total 0.1 mg/dl (0.2-1.3); Lactic Acid 2.7 mmol/L (0.7-2.1)
[2022-08-05 18:32] LABS: Troponin I 0.35 ng/ml (0.00-0.034)
[2022-08-05 18:41] LABS: Lymphocytes % 8 % (10-50); Macrocytosis 1+; Monocytes % 2 % (2-9); Neutrophils % 90 % (42-76); Platelet Estimate Normal; Total Cells Counted 100
--- NOTE | 2022-08-05 18:42 | PC.NURSE ---
notified ER of critical troponin result
--- NOTE | 2022-08-05 18:43 | ECG_ITS ---
APPROVED REPORT Exam: Resting ECG HR:138 bpm ECG Measurements Heart Rate 138 AXES MI 167 P 78 QRSd 102 QRS 90 QT 291 T 85 QTc 372 Conclusion SINUS TACHYCARDIA ABNORMAL RHYTHM ECG UNCONFIRMED REPORT Electronically signed by : Oscar Patterson MD 08/08/2022 20:19:41
[2022-08-05 18:57] LABS: Procalcitonin 0.052 ng/mL (0.0-2.0)
[2022-08-05 19:35] LABS: C-Reactive Protein 52.4 mg/L (0-4)
--- NOTE | 2022-08-05 19:37 | PC.NURSE ---
report given to to ambika mora; ambika reyes; esperanzarn
--- NOTE | 2022-08-05 20:04 | PC.NURSE ---
house notified for bed assignment
[2022-08-05 21:34] LABS: Troponin I 3.98 ng/ml (0.00-0.034)
--- NOTE | 2022-08-05 21:37 | PC.NURSE ---
[address] lopez regarding duoneb. states he will put orders in. Pt lung sounds diminished with slight wheezing t/o. pt [place] SOA at this time. 2133 reported critical troponin of 3.[address] lopez. reported pts HR of 140's and pt being very SOA. Verbal order for EKG at this time. 2135 RT at bedside for ekg
--- NOTE | 2022-08-05 21:40 | ECG_ITS ---
APPROVED REPORT Exam: Resting ECG HR:138 bpm ECG Measurements Heart Rate 138 AXES NC 134 P 75 QRSd 101 QRS 90 QT 298 T 83 QTc 379 Conclusion SINUS TACHYCARDIA NONSPECIFIC ST ELEVATION [0.05+ mV ST ELEVATION] ABNORMAL RHYTHM ECG UNCONFIRMED REPORT Electronically signed by : Oscar Patterson MD 08/08/2022 20:19:28
[2022-08-05 21:51] LABS: Reflex Lactic Add Lactic Reflex
--- NOTE | 2022-08-05 21:51 | PC.NURSE ---
EKG read by ED MD Dr. Barger. no acute stemi
--- NOTE | 2022-08-05 22:24 | EXP.ACUTE.PN ---
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 He was presented by the ER doctor as having Flu A and hypoxia with fairly advanced COPD. He actually has an elevated troponin and an elevated lactate with a resp rate of 30 and HR of 140. Pt was seen in the ER earlier today for similar symptoms. Medical Exam Vital signs and Labs for Last 24 Hours: Vital Signs Temp Pulse Pulse Resp BP BP Pulse Ox 08/05/22 22:05 140 H 08/05/22 22:05 143 H 08/05/22 22:05 97 08/05/22 21:54 30 H 08/05/22 21:17 98.7 F 140 H 22 144/96 H 96 08/05/22 20:28 98.1 F 139 H 24 128/84 08/05/22 17:39 98.1 F 138 H 22 158/101 H 71 L 08/05/22 19:00 139 H 158/101 H 94 L 08/05/22 18:30 136 H 94 L 08/05/22 18:00 133 H 97 FiO2 08/05/22 22:05 08/05/22 22:05 08/05/22 22:05 50 08/05/22 21:54 08/05/22 21:17 08/05/22 20:28 08/05/22 17:39 08/05/22 19:00 08/05/22 18:30 08/05/22 18:00 Intake and Output 08/05/22 08/05/22 08/05/22 07:59 15:59 23:59 Other: Weight 130 lb 1 oz Patient Weight 08/05/22 23:59 Weight 130 lb 1 oz Laboratory Results - last 24 hr 08/05/22 17:35: WBC 18.1 H, RBC 4.70, Hgb 15.7, Hct 48.1, MCV 102.3 H, MCH 33.5 H, MCHC 32.7, RDW 13.2, Plt Count 441 H, MPV 7.7, Neut % (Auto) 92.6 H, Lymph % (Auto) 2.6 L, [place] % (Auto) 4.2, Eos % (Auto) 0.2, Baso % (Auto) 0.4, Neut # (Auto) 16.8 H, Lymph # (Auto) 0.5 L, [place] # (Auto) 0.8, Eos # (Auto) 0.0, Baso # (Auto) 0.1, Total Counted 100, Neutrophils % (Manual) 90 H, Lymphocytes % (Manual) 8 L, Monocytes % (Manual) 2, Platelet Estimate Normal, RBC Morphology Not Reportable, Macrocytosis 1+ 08/05/22 17:35: Sodium 130 L, Potassium 4.1, Chloride 96 L, Carbon Dioxide 23, Anion Gap 15.1 H, BUN 9, Creatinine 0.60 L D, Estimated Creat Clear 5, Estimated GFR 139, Est GFR ( Amer) 168 D, Glucose 208 H D, Calcium 9.3, Total Bilirubin 0.1 L, AST 62 H, ALT 55, Alkaline Phosphatase 75, Troponin I 0.35 H, Total Protein 7.4, Albumin 4.5, Globulin 2.9, Albumin/Globulin Ratio 1.6, Procalcitonin 0.052 08/05/22 17:35: Lactate 2.7 H 08/05/22 17:35: C-Reactive Protein 52.4 H 08/05/22 17:41: VBG pH 7.25 L, VBG pCO2 46.4, VBG pO2 88.6 H, VBG HCO3 19.8 L, VBG Total CO2 21.2 L, VBG O2 Saturation 96.7 H, VBG Base Excess -7.5 L 08/05/22 20:50: Troponin I 3.98 H I & O for Labs for Last 24 Hours: Intake & Output 08/02/22 08/03/22 08/04/22 08/05/22 23:59 23:59 23:59 23:59 Weight 130 lb 1 oz Constitutional: Present moderate distress Respiratory: Present accessory muscle use, wheezes and diminished air movement Cardiac: Present Tachycardia Extremities: Present normal capillary refill; Absent edema Assessment and Plan *Assessment and plan (1) Acute hypoxemic respiratory failure: Status: Acute Category: Medical Code(s): J96.01 - Acute respiratory failure with hypoxia (2) Influenza A: Status: Acute Category: Medical Code(s): J10.1 - Influenza due to other identified influenza virus with other respiratory manifestations (3) Elevated troponin: Status: Acute Category: Medical Code(s): R77.8 - Other specified abnormalities of plasma proteins (4) Elevated lactic acid level: Status: Acute Category: Medical Code(s): R79.89 - Other specified abnormal findings of blood chemistry (5) Severe sepsis: Status: Acute Category: Medical Code(s): A41.9 - Sepsis, unspecified organism; R65.20 - Severe sepsis without septic shock (6) COPD (chronic obstructive pulmonary disease): Status: Acute Category: Medical Code(s): J44.9 - Chronic obstructive pulmonary disease, unspecified Plan Plan to move patient to step down now, give Duoneb now, metoprolol 5 mg IV x 1, needs IV fluid bolus for sepsis, blood cultures and repeat lactic acid level. Tissue
--- NOTE | 2022-08-05 22:25 | PC.NURSE ---
dr lopez at bedside to assess this pt. verbal orders received to move pt to step-down and give metoprolol 5 mg iv once now.
[2022-08-05 22:28] LABS: Lactic Acid Follow Up (RFLX 1) 1.9 mmol/L (0.7-2.1)
--- NOTE | 2022-08-05 22:38 | PC.NURSE ---
bolus NS going per verbal order from MD Suarez at bedside: ERIN Fernández starting second IV; have heparin drip ready and in room, awaiting MD to put in heparin drip order to know what to start drip on and PTT baseline
[2022-08-06] VITALS (20 sets, daily range): BP systolic 87–148; BP diastolic 56–108; PULSE 86–119; RESP 17–33; TEMP 36.2–36.9; O2SAT 88–100
[2022-08-06 00:23] LABS: Lactic Acid 3.8 mmol/L (0.7-2.1)
--- NOTE | 2022-08-06 00:38 | PC.NURSE ---
sepsis bolus complete
[2022-08-06 00:40] LABS: Troponin I 6.18 ng/ml (0.00-0.034)
[2022-08-06 00:42] LABS: PTT Heparin (inpatient only) 37.3 Seconds (23.6-34.0)
--- NOTE | 2022-08-06 00:59 | PC.NURSE ---
notified MD Suarez of pt's critical troponin of 6.18, no new orders at this time
--- NOTE | 2022-08-06 06:38 | PC.NURSE ---
MD Pemberton notified this RN that labs are likely due to hepatic congestion and to hold any beta blockers and entresto today, only give ASA and Brilinta today and give NS @ 150mL/hr for total of 500mL
--- NOTE | 2022-08-06 07:41 | HMH.PHAINT1 ---
Pharmacy Intervention Comments: Medication reconcilation completed via external fill history and patient interview. -Adriana Madden, PharmD Candidate 2022
--- NOTE | 2022-08-06 08:29 | EXP.HP ---
History of Present Illness *Admission Date: 08/05/22 *Reason for visit:: Progressive shortness of breath *History of present illness: Mr. King is a 56-year-old male patient with depression, insomnia, COPD who presented to [facility] emergency room in respiratory distress. Following is the ER note: Medical Decision Narrative: In summary this is a 56-year-old male with history of COPD presenting to the emergency department with respiratory distress.? Patient appears unwell on arrival.? Hypoxic in the 80s.? Tachycardic to 105 beats minute.? No hypotension.? Will obtain CBC, CMP, chest x-ray, EKG, troponin profile, procalcitonin, lactic acid, blood cultures Chart review shows that patient was evaluated in our emergency department early this morning, 12 hours ago.? He was diagnosed with influenza A.? Given prescription for Tamiflu and prednisone. Laboratories also markable for elevated white blood cell count at 18,000. Troponin mildly elevated at 0.35. Concern for superimposed bacterial infection.? Patient given 1 g Rocephin and 500 mg azithromycin. On reassessment, patient still requires 5 L by nasal cannula to maintain oxygen saturation greater than 90%.? Tachycardic.? Otherwise stable, conversational.? Believe he would benefit from hospitalization for treatment of acute epoxy respiratory failure in the setting of influenza, history of COPD.? Case discussed with Dr. Suarez on-call for Dr. Weldon.? Will admit. The above is per ER note. Patient was seen by Dr. Suarez last evening and was given DuoNeb's and 5 mg IV of metoprolol. He was also given IV fluids for sepsis with blood cultures and repeat lactic acid level. With elevated troponin he was given IV heparin and 30 mg of Plavix. Patient states he has been ill for the last 3 days with progressive shortness of breath. He denies having any chest pain. He states he actually feels he is breathing a little better. He has been unable to walk due to his respiratory status. Also to note on 07/30/2022 patient presented to [facility] and was treated for bronchitis with doxycycline and prednisone. He states that he was well from this episode. He no longer smokes. This a.m.White blood cell count noted to be 18,100 last p.m. with a left shift. Renal function is good. Lactate was elevated at 3.8. Troponin I has gone from 0.01 up to 6.18. Chest x-ray showed chronic interstitial changes with no evidence of pneumonia. [facility] Medical History (Updated 08/06/22 @ 08:39 by Sharmin Madrid APRN) COPD (chronic obstructive pulmonary disease) Surgical History (Updated 08/06/22 @ 08:39 by Sharmin Madrid APRN) H/O right knee surgery History of ankle surgery No significant past surgical history Family History No significant family history Social History Smoking Status: Former smoker alcohol intake: never current occupational status: disabled Travel in the last 8 weeks: None Review of Systems Constitutional Constitutional: Denies headache(s), Reports lethargy and Reports weakness Eyes Eyes: Denies change in vision ENT Ears, Nose, Mouth, and Throat: Denies dizziness, Reports dry mouth, Denies otalgia, Denies headache(s) and Reports sore throat *Cardiovascular Cardiovascular: Denies chest pain, Reports dyspnea, Denies edema and Reports rapid heart rate *Respiratory Respiratory: Reports chest congestion, Reports cough, Reports dyspnea and Denies hemoptysis *Gastrointestinal Gastrointestinal: Denies abdominal pain, Denies constipation, Denies loose stools, Denies nausea and Denies vomiting *Genitourinary Genitourinary: Denies difficulty urinating *Musculoskeletal Musculoskeletal: Reports abnormal gait (Has been unable to walk due to weakness), Denies arthralgias, Reports muscle weakness and Denies numbness *Neurologic Neurologic: Reports abnormal
--- NOTE | 2022-08-06 09:58 | EXP.CARD.CON ---
History of Present Illness History of Present Illness Consult date: 08/06/22 Requesting physician: Lillian Weldon Chief complaint: soa, cough Additional Medical History:: Past Medical Hx: Depression Insomnia COPD Former pack and a half smoker Reports drinks 3 nights a week usually a six pack of beer History of present illness: 56-year-old white male, with above past medical history presented to emergency department last night with complaints of cough, fatigue and shortness of air x 2 to 3 days with symptoms becoming worse yesterday. Patient was diagnosed with influenza A in emergency department yesterday afternoon, was prescribed Tamiflu and prednisone and was discharged home. Patient reports he continued to feel worse becoming more short of air which prompted him to call EMS and return to ER for second time. When EMS arrived patient was found to be in respiratory distress with oxygen saturations in the 70s on room air. Patient was placed on 2 L nasal cannula and received 2 duo nebs during transport to emergency department. Upon presentation to emergency department he remained hypoxic with sats in the 80s. WBC in ER was 18,000 troponin was mildly elevated 0.35 patient was given 1 g Rocephin and 500 mg azithromycin IV and was admitted for further evaluation. Initial EKG showed sinus tach in the 130s. A repeat troponin elevated to 6.18. Patient was loaded with plavix and started on heparin drip. Patient denies chest pain. Denies LE edema. Preliminary echo report reveals EF of 20 percent. Patient currently complaining of soa. [facility] Medical History (Updated 08/06/22 @ 13:25 by Kimberlyn Gonzáles APRN) COPD (chronic obstructive pulmonary disease) Surgical History (Updated 08/06/22 @ 08:39 by Sharmin Madrid APRN) H/O right knee surgery History of ankle surgery No significant past surgical history Family History Other No significant family history Social History Smoking Status: Former smoker alcohol intake: never current occupational status: disabled Travel in the last 8 weeks: None Review of Systems Constitutional Constitutional: Denies headache(s) and Reports weakness ENT Ears, Nose, Mouth, and Throat: Denies dizziness and Denies headache(s) *Cardiovascular Cardiovascular: Denies chest pain, Reports chest pain with activity and Reports dyspnea on exertion Comments: No lower extremity edema present. *Respiratory Respiratory: Reports dyspnea on exertion *Musculoskeletal Musculoskeletal: Reports abnormal gait (Has been unable to walk due to weakness) and Denies numbness *Neurologic Neurologic: Reports abnormal gait (Has been unable to walk due to weakness), Denies dizziness, Denies headache(s), Denies numbness and Reports weakness Exam Data for Last 24 hours Vital signs and Labs for Last 24 Hours: Temp Pulse Resp BP Pulse Ox FiO2 97.5 F L 109 H 26 H 102/60 L 100 50 08/06/22 08:00 08/06/22 08:00 08/06/22 06:00 08/06/22 06:00 08/06/22 06:00 08/06/22 06:00 Laboratory Results - last 24 hr 08/05/22 17:35: WBC 18.1 H, RBC 4.70, Hgb 15.7, Hct 48.1, MCV 102.3 H, MCH 33.5 H, MCHC 32.7, RDW 13.2, Plt Count 441 H, MPV 7.7, Neut % (Auto) 92.6 H, Lymph % (Auto) 2.6 L, [place] % (Auto) 4.2, Eos % (Auto) 0.2, Baso % (Auto) 0.4, Neut # (Auto) 16.8 H, Lymph # (Auto) 0.5 L, [place] # (Auto) 0.8, Eos # (Auto) 0.0, Baso # (Auto) 0.1, Total Counted 100, Neutrophils % (Manual) 90 H, Lymphocytes % (Manual) 8 L, Monocytes % (Manual) 2, Platelet Estimate Normal, RBC Morphology Not Reportable, Macrocytosis 1+ 08/05/22 17:35: Sodium 130 L, Potassium 4.1, Chloride 96 L, Carbon Dioxide 23, Anion Gap 15.1 H, BUN 9, Creatinine 0.60 L D, Estimated Creat Clear 5, Estimated GFR 139, Est GFR ( Amer) 168 D, Glucose 208 H D, Calcium 9.3, Total Bilirubin 0.1 L, AST 62 H, ALT 55, Alkaline Phosphatase 75, Troponin I 0.35 H, To
--- NOTE | 2022-08-06 10:13 | EXP.PULM.CON ---
History of Present Illness History of present illness: Mr. King is a 56-year-old male history of COPD on inhaler therapy at home, not using any oxygen therapy presents hospital worsening respiratory's and found to be having influenza pneumonia and pulmonary was called for further management. Admits worsening respiratory distress for the last 4 to 5 days as well as intermittent cough and productive phlegm. [facility] Medical History (Updated 08/06/22 @ 11:29 by Kimberlyn Gonzáles APRN) COPD (chronic obstructive pulmonary disease) Surgical History (Updated 08/06/22 @ 08:39 by Sharmin Madrid APRN) H/O right knee surgery History of ankle surgery No significant past surgical history Family History Other No significant family history Social History Smoking Status: Former smoker alcohol intake: never current occupational status: disabled Travel in the last 8 weeks: None Review of Systems Constitutional Constitutional: Reports fatigue and Denies headache(s) Eyes Eyes: Denies eye discharge, Denies dry eyes, Denies irritation and Denies itchy eyes ENT Ears, Nose, Mouth, and Throat: Denies dizziness, Denies headache(s), Denies lip swelling and Denies throat swelling *Cardiovascular Cardiovascular: Reports dyspnea and Reports dyspnea on exertion *Respiratory Respiratory: Reports chest congestion, Reports cough, Reports dyspnea, Reports dyspnea on exertion, Reports excessive phlegm production and Reports wheezing *Gastrointestinal Gastrointestinal: Denies abdominal pain, Denies belching and Denies cramping *Musculoskeletal Musculoskeletal: Reports abnormal gait (Has been unable to walk due to weakness) and Denies numbness *Neurologic Neurologic: Reports abnormal gait (Has been unable to walk due to weakness), Denies dizziness, Denies headache(s) and Denies numbness Psychiatric Psychiatric: Reports anxiety, Denies homicidal ideation and Denies suicidal ideation Endocrine Endocrine: Reports fatigue and Denies heat intolerance Hematologic/Lymphatic Hematologic/Lymphatic: Denies easy bleeding and Denies lymphadenopathy Allergic/Immunologic Allergic/Immunologic: Denies itchy eyes, Denies lip swelling, Denies throat swelling and Reports wheezing Pulmonology Exam Inpatient Vital signs and Labs for Last 24 Hours: Temp Pulse Resp BP Pulse Ox FiO2 97.5 F L 109 H 26 H 102/60 L 100 50 08/06/22 08:00 08/06/22 08:00 08/06/22 06:00 08/06/22 06:00 08/06/22 06:00 08/06/22 06:00 Laboratory Results - last 24 hr 08/05/22 17:35: WBC 18.1 H, RBC 4.70, Hgb 15.7, Hct 48.1, MCV 102.3 H, MCH 33.5 H, MCHC 32.7, RDW 13.2, Plt Count 441 H, MPV 7.7, Neut % (Auto) 92.6 H, Lymph % (Auto) 2.6 L, [place] % (Auto) 4.2, Eos % (Auto) 0.2, Baso % (Auto) 0.4, Neut # (Auto) 16.8 H, Lymph # (Auto) 0.5 L, [place] # (Auto) 0.8, Eos # (Auto) 0.0, Baso # (Auto) 0.1, Total Counted 100, Neutrophils % (Manual) 90 H, Lymphocytes % (Manual) 8 L, Monocytes % (Manual) 2, Platelet Estimate Normal, RBC Morphology Not Reportable, Macrocytosis 1+ 08/05/22 17:35: Sodium 130 L, Potassium 4.1, Chloride 96 L, Carbon Dioxide 23, Anion Gap 15.1 H, BUN 9, Creatinine 0.60 L D, Estimated Creat Clear 5, Estimated GFR 139, Est GFR ( Amer) 168 D, Glucose 208 H D, Calcium 9.3, Total Bilirubin 0.1 L, AST 62 H, ALT 55, Alkaline Phosphatase 75, Troponin I 0.35 H, Total Protein 7.4, Albumin 4.5, Globulin 2.9, Albumin/Globulin Ratio 1.6, Procalcitonin 0.052 08/05/22 17:35: Lactate 2.7 H 08/05/22 17:35: C-Reactive Protein 52.4 H 08/05/22 17:41: VBG pH 7.25 L, VBG pCO2 46.4, VBG pO2 88.6 H, VBG HCO3 19.8 L, VBG Total CO2 21.2 L, VBG O2 Saturation 96.7 H, VBG Base Excess -7.5 L 08/05/22 20:50: Troponin I 3.98 H 08/05/22 22:08: Lactate 1.9 08/05/22 23:56: Troponin I 6.18 H 08/05/22 23:56: Lactate 3.8 H 08/06/22 00:10: APTT 37.3 H 08/06/22 06:30: APTT 55.0 H* I & O for Labs fo
[2022-08-06 11:22] LABS: Basophils # 0.1 K/mm3 (0-0.2); Basophils % 0.3 % (0.1-2.0); Eosinophils # 0.2 K/mm3 (0.0-0.4); Eosinophils % 0.8 % (0.1-12.0); Hematocrit 47.6 % (42.0-52.0); Hemoglobin 15.6 g/dL (14.1-18.0); Lymphocytes # 0.7 K/mm3 (0.7-4.5); Lymphocytes % 2.7 % (10-50); Mean Corpuscular HGB Conc 32.7 g/dL (31.8-35.4); Mean Corpuscular Hemoglobin 33.6 pg (27.0-31.2); Mean Corpuscular Volume 102.6 fl (80-94); Mean Platelet Volume 8.1 fl (7.4-10.4); Monocytes # 0.8 K/mm3 (0.1-1.0); Monocytes % 3.1 % (1.7-9.3); Neutrophils # 25.2 K/mm3 (1.8-7.8); Neutrophils % 93.2 % (37.0-80.0); Platelet Count 316 K/mm3 (142-424); Red Blood Count 4.64 M/mm3 (4.60-6.20); Red Cell Distribution Width 13.2 % (11.5-17.5)
[2022-08-06 11:25] LABS: MANUAL DIFFERENTIAL MANUAL DIFFERENTIAL (MANUAL DIFF)
[2022-08-06 11:46] LABS: Eosinophils % 1 % (0-3); Lymphocytes % 5 % (10-50); Monocytes % 1 % (2-9); Neutrophils % 93 % (42-76); Platelet Estimate Normal; Total Cells Counted 100
[2022-08-06 11:47] LABS: Macrocytosis 1+
[2022-08-06 11:50] LABS: Chloride 100 mmol/L (98-107)
[2022-08-06 11:51] LABS: Potassium 5.4 mmoL/L (3.5-5.1); Sodium 133 mmol/L (136-145)
[2022-08-06 11:53] LABS: Alanine Aminotransferase 198 U/L (12-78); Alkaline Phosphatase 76 U/L (38-126); Anion Gap 20.4 mEq/L (5-15); Aspartate Amino Transferase 434 U/L (17-59); Bilirubin,Total 0.6 mg/dl (0.2-1.3); Blood Urea Nitrogen 22 mg/dl (9-20); Carbon Dioxide 18 mmol/L (22.0-30.0); Creatinine Clearance Estimated 61 mL/min (50-200); Estimated Glomerular Filt Rate 69 ml/min (>60); GFR (African American) 83 ML/MIN (>60)
[2022-08-06 11:54] LABS: Albumin Level 4.2 g/dl (3.5-5.0); Albumin/Globulin Ratio 1.4 (1.1-1.8); Calcium 8.7 mg/dl (8.4-10.2); Globulin 2.9 g/dL (1.3-3.2); Glucose 162 mg/dl (74-100); Total Protein,Serum 7.1 g/dl (6.3-8.2)
[2022-08-06 13:27] LABS: PTT Heparin (inpatient only) 63.8 Seconds (23.6-34.0)
[2022-08-06 14:27] LABS: Vitamin B12 > 1000 pg/mL (239-931)
--- NOTE | 2022-08-06 14:48 | PC.NURSE ---
Pt is alert and oriented x4. Lungs are diminished throughout with scattered wheezing bilaterally. He's been weaned to 2L NC with O2 saturations measuring >95%. He reported drinking alcoholic beverages 3 x week and reported having some anxiety earlier in the shift. Pt was sitting up in the bed in tripod position, muscles tensed with mild tremors noted. Dr Weldon was notified, 10 mg oxazepam po QID ordered and administered. Tremors not visible and pt lying back in the bed watching tv on reassessment. He's been sinus tach (100's-110's) on telemetry. He's used a urinal independently at the bedside. 1200ML's of clear, yellow urine out thus far. Heparin currently infusing at 800 units/hr per order. Appetite is poor with pt refusing lunch. He denies any needs at this time. Bed is locked and in the lowest position, call light is within reach. is at bedside.
--- NOTE | 2022-08-06 15:19 | HMH.PHAHEP ---
[facility] Pharmacy Heparin Dosing Demographic Data Admission date:: 08/05/22 Date: 08/06/22 Time: 15:19 Allergies Allergy/AdvReac Type Severity Reaction Status Date / Time No Known Allergies Allergy Verified 04/24/21 10:00 Height: 1.82 m Weight: 58 kg Indication Medication therapy:: Heparin Current Indications:: acute coronary syndrome Current Active Problems (Updated 08/08/22 @ 09:35 by Lillian Weldon MD) Alcohol abuse (Acute) Cardiomyopathy (Acute) Leukocytosis (Acute) Acute systolic heart failure (Acute) Depression (Acute) COPD exacerbation (Acute) Acute exacerbation of chronic obstructive airways disease (Acute) Influenza A (Acute) Influenza A (Acute) Acute hypoxemic respiratory failure (Acute) COPD (chronic obstructive pulmonary disease) (Acute) Elevated troponin (Acute) Elevated lactic acid level (Acute) Severe sepsis (Acute) CVA?: No Bleeding problem?: No Kidney disease?: No [place]?: No Desired PTT range:: 50-75 seconds Labs Anticoagulation Lab Results:: 08/05/22 08/06/22 17:35 11:04 Hgb 15.7 15.6 Hct 48.1 47.6 Plt Count 441 H 316 D Monitoring Dose Monitor 1: Date: 08/06/22 Time: 06:30 PTT Result:: 55 Infusion Rate:: continue 16ml/hr (800 units/hr) per physician request. PTT in 6 hours Dose Monitor 2: Date: 08/06/22 Time: 12:30 PTT Result:: 63.8 Infusion Rate:: continue 16ml/hr (800 units/hr) repeat PTT in 6 hours Core Measures Is INR > or = 2 at discharge?: No Most Recent Labs:: Laboratory Results - last 24 hr 08/05/22 17:35: WBC 18.1 H, RBC 4.70, Hgb 15.7, Hct 48.1, MCV 102.3 H, MCH 33.5 H, MCHC 32.7, RDW 13.2, Plt Count 441 H, MPV 7.7, Neut % (Auto) 92.6 H, Lymph % (Auto) 2.6 L, [place] % (Auto) 4.2, Eos % (Auto) 0.2, Baso % (Auto) 0.4, Neut # (Auto) 16.8 H, Lymph # (Auto) 0.5 L, [place] # (Auto) 0.8, Eos # (Auto) 0.0, Baso # (Auto) 0.1, Total Counted 100, Neutrophils % (Manual) 90 H, Lymphocytes % (Manual) 8 L, Monocytes % (Manual) 2, Platelet Estimate Normal, RBC Morphology Not Reportable, Macrocytosis 1+ 08/05/22 17:35: Sodium 130 L, Potassium 4.1, Chloride 96 L, Carbon Dioxide 23, Anion Gap 15.1 H, BUN 9, Creatinine 0.60 L D, Estimated Creat Clear 5, Estimated GFR 139, Est GFR ( Amer) 168 D, Glucose 208 H D, Calcium 9.3, Total Bilirubin 0.1 L, AST 62 H, ALT 55, Alkaline Phosphatase 75, Troponin I 0.35 H, Total Protein 7.4, Albumin 4.5, Globulin 2.9, Albumin/Globulin Ratio 1.6, Procalcitonin 0.052 08/05/22 17:35: Lactate 2.7 H 08/05/22 17:35: C-Reactive Protein 52.4 H 08/05/22 17:41: VBG pH 7.25 L, VBG pCO2 46.4, VBG pO2 88.6 H, VBG HCO3 19.8 L, VBG Total CO2 21.2 L, VBG O2 Saturation 96.7 H, VBG Base Excess -7.5 L 08/05/22 20:50: Troponin I 3.98 H 08/05/22 22:08: Lactate 1.9 08/05/22 23:56: Troponin I 6.18 H 08/05/22 23:56: Lactate 3.8 H 08/06/22 00:10: APTT 37.3 H 08/06/22 06:30: APTT 55.0 H* 08/06/22 11:04: WBC 27.0 H* D, RBC 4.64, Hgb 15.6, Hct 47.6, MCV 102.6 H, MCH 33.6 H, MCHC 32.7, RDW 13.2, Plt Count 316 D, MPV 8.1, Neut % (Auto) 93.2 H, Lymph % (Auto) 2.7 L, [place] % (Auto) 3.1, Eos % (Auto) 0.8, Baso % (Auto) 0.3, Neut # (Auto) 25.2 H, Lymph # (Auto) 0.7, [place] # (Auto) 0.8, Eos # (Auto) 0.2, Baso # (Auto) 0.1, Total Counted 100, Neutrophils % (Manual) 93 H, Lymphocytes % (Manual) 5 L, Monocytes % (Manual) 1 L, Eosinophils % (Manual) 1, Platelet Estimate Normal, Macrocytosis 1+ 08/06/22 11:27: Sodium 133 L, Potassium 5.4 H D, Chloride 100, Carbon Dioxide 18 L, Anion Gap 20.4 H, BUN 22 H D, Creatinine 1.10 D, Estimated Creat Clear 61, Estimated GFR 69, Est GFR ( Amer) 83 D, Glucose 162 H D, Calcium 8.7, Total Bilirubin 0.6, AST 434 H* D, ALT 198 H D, Alkaline Phosphatase 76, Total Protein 7.1, Albumin 4.2, Globulin 2.9, Albumin/Globulin Ratio 1.4 08/06/22 12:59: APTT 63.8 H* 08/06/22 12:59: Vitamin B12 > 1000 H, Folate 16.10 Were Heparin and Warfarin started on the same day?: No
[2022-08-06 19:18] LABS: PTT Heparin (inpatient only) 51.8 Seconds (23.6-34.0)
--- NOTE | 2022-08-06 19:45 | PC.NURSE ---
[facility] contacted for PTT. No changes to heparin gtt. New PTT in 6 hrs.
[2022-08-07] VITALS (28 sets, daily range): BP systolic 83–115; BP diastolic 40–78; PULSE 85–110; RESP 14–21; TEMP 36.3–36.8; O2SAT 91–99; BMI 17.4
[2022-08-07 02:30] LABS: PTT Heparin (inpatient only) 52.2 Seconds (23.6-34.0)
--- NOTE | 2022-08-07 02:41 | PC.NURSE ---
SPOKE WITH SHANTEL WITH NIGHT WATCH. CONTINUE WITH CURRENT HEPARIN RATE AND NEXT APTT IS AT 0800.
--- NOTE | 2022-08-07 04:33 | PC.NURSE ---
Pt has slept at intervals this shift. Has nonproductive cough. He is currently on RA with O2 sats in mid 90s. Wheezing and rhonchi noted to lung wen. BP has been soft. No complaints stated. Pt is NPO. Family at bedside. Call light within reach.
[2022-08-07 06:31] LABS: Basophils % 0.2 % (0.1-2.0); Eosinophils # 0.1 K/mm3 (0.0-0.4); Eosinophils % 0.2 % (0.1-12.0); Hematocrit 45.7 % (42.0-52.0); Hemoglobin 14.9 g/dL (14.1-18.0); Lymphocytes # 0.6 K/mm3 (0.7-4.5); Lymphocytes % 2.7 % (10-50); Mean Corpuscular HGB Conc 32.6 g/dL (31.8-35.4); Mean Corpuscular Hemoglobin 32.5 pg (27.0-31.2); Mean Corpuscular Volume 99.9 fl (80-94); Mean Platelet Volume 9.1 fl (7.4-10.4); Monocytes # 1.4 K/mm3 (0.1-1.0); Monocytes % 6.5 % (1.7-9.3); Neutrophils # 19.6 K/mm3 (1.8-7.8); Neutrophils % 90.2 % (37.0-80.0); Platelet Count 336 K/mm3 (142-424); Red Blood Count 4.57 M/mm3 (4.60-6.20); Red Cell Distribution Width 13.1 % (11.5-17.5); White Blood Count 21.7 K/mm3 (4.8-10.8)
[2022-08-07 06:40] LABS: Alanine Aminotransferase 169 U/L (12-78); Albumin Level 3.9 g/dl (3.5-5.0); Albumin/Globulin Ratio 1.6 (1.1-1.8); Alkaline Phosphatase 94 U/L (38-126); Aspartate Amino Transferase 302 U/L (17-59); Bilirubin,Total 0.2 mg/dl (0.2-1.3); Blood Urea Nitrogen 22 mg/dl (9-20); Calcium 8.5 mg/dl (8.4-10.2); Carbon Dioxide 29 mmol/L (22.0-30.0); Chloride 88 mmol/L (98-107); Creatinine Clearance Estimated 67 mL/min (50-200); Estimated Glomerular Filt Rate 77 ml/min (>60); GFR (African American) 93 ML/MIN (>60); Globulin 2.5 g/dL (1.3-3.2); Glucose 105 mg/dl (74-100); Potassium 3.5 mmoL/L (3.5-5.1); Total Protein,Serum 6.4 g/dl (6.3-8.2)
[2022-08-07 06:41] LABS: MANUAL DIFFERENTIAL MANUAL DIFFERENTIAL (MANUAL DIFF)
[2022-08-07 07:45] LABS: Lymphocytes % 4 % (10-50); Monocytes % 3 % (2-9); Neutrophils % 93 % (42-76); Total Cells Counted 100
[2022-08-07 07:46] LABS: Platelet Estimate Normal; RBC Morphology Normal
--- NOTE | 2022-08-07 08:11 | EXP.ACUTE.PN ---
Subjective *Date: 08/07/22 *Time: 08:11 Interval history: Patient states he is feeling a little bit better this morning. He still has a cough but his shortness of breath is improved. He denies any pain and states he slept well last night. Medical Exam Vital signs and Labs for Last 24 Hours: Vital Signs Temp Pulse Pulse Resp BP Pulse Ox 08/07/22 07:56 97.5 F L 08/07/22 06:00 97 H 17 85/56 L 97 08/07/22 06:03 108 H 08/07/22 06:03 101 H 08/07/22 06:03 93 L 08/07/22 04:00 100 H 08/07/22 04:00 95 08/07/22 04:00 98.3 F 98 H 17 98/51 L 95 08/07/22 03:00 106 H 21 87/40 L 97 08/07/22 02:00 105 H 21 93/58 L 96 08/07/22 00:00 110 H 08/07/22 00:00 96 08/07/22 00:00 98.0 F 102 H 20 104/78 L 96 08/06/22 20:00 110 H 08/06/22 22:00 109 H 22 102/57 L 96 08/06/22 20:00 98.1 F 109 H 21 106/75 L 96 08/06/22 21:44 104 H 08/06/22 21:44 109 H 08/06/22 18:23 104 H 08/06/22 18:23 103 H 08/06/22 18:23 99 08/06/22 18:00 110 H 24 110/78 97 08/06/22 16:00 110 H 08/06/22 16:00 110 H 24 126/80 97 08/06/22 15:35 98.1 F 08/06/22 14:45 96 H 08/06/22 14:45 111 H 08/06/22 12:00 105 H 08/06/22 14:00 114 H 28 H 137/86 99 08/06/22 12:00 97.1 F L 106 H 28 H 128/94 H 99 08/06/22 10:00 108 H 26 H 131/87 99 08/06/22 10:31 98 Intake and Output 08/06/22 08/07/22 08/07/22 19:59 03:59 11:59 Intake Total 969 / 1447 388 / 1447 90 / 1447 Output Total 1150 / 2650 0 / 2650 1500 / 2650 Balance -181 / -1203 388 / -1203 -1410 / -1203 Intake: Intake, Oral Amount 660 / 660 0 / 660 Intake, Total IV Amount 309 / 787 388 / 787 90 / 787 Azithromycin 500 mg In 0.9 % 250 / 250 Sodium Chloride 250 ml @ 250 mls/hr IV Q24H ISAIAS Rx#:[id number] Ceftriaxone 1 gm 1 gm In 0.9 % 50 / 50 Sodium Chloride 50 ml @ 100 mls /hr IV Q24H ISAIAS Rx#:[id number] Heparin Sodium,Porcine/D5w 500 309 / 487 88 / 487 90 / 487 ml @ 800 UNITS/HR 16 mls/hr IV .Q25H ISAIAS Rx#:[id number] Output: Output, Urine Amount 1150 / 2650 0 / 2650 1500 / 2650 Other: Number of Unmeasured Voids 1 0 1 Weight 127 lb 13.89 oz 127 lb 8 oz Patient Weight 08/07/22 11:59 Weight 127 lb 8 oz Laboratory Results - last 24 hr 08/06/22 11:04: WBC 27.0 H* D, RBC 4.64, Hgb 15.6, Hct 47.6, MCV 102.6 H, MCH 33.6 H, MCHC 32.7, RDW 13.2, Plt Count 316 D, MPV 8.1, Neut % (Auto) 93.2 H, Lymph % (Auto) 2.7 L, [place] % (Auto) 3.1, Eos % (Auto) 0.8, Baso % (Auto) 0.3, Neut # (Auto) 25.2 H, Lymph # (Auto) 0.7, [place] # (Auto) 0.8, Eos # (Auto) 0.2, Baso # (Auto) 0.1, Total Counted 100, Neutrophils % (Manual) 93 H, Lymphocytes % (Manual) 5 L, Monocytes % (Manual) 1 L, Eosinophils % (Manual) 1, Platelet Estimate Normal, Macrocytosis 1+ 08/06/22 11:27: Sodium 133 L, Potassium 5.4 H D, Chloride 100, Carbon Dioxide 18 L, Anion Gap 20.4 H, BUN 22 H D, Creatinine 1.10 D, Estimated Creat Clear 61, Estimated GFR 69, Est GFR ( Amer) 83 D, Glucose 162 H D, Calcium 8.7, Total Bilirubin 0.6, AST 434 H* D, ALT 198 H D, Alkaline Phosphatase 76, Total Protein 7.1, Albumin 4.2, Globulin 2.9, Albumin/Globulin Ratio 1.4 08/06/22 12:59: APTT 63.8 H* 08/06/22 12:59: Vitamin B12 > 1000 H, Folate 16.10 08/06/22 18:30: APTT 51.8 H* 08/07/22 02:10: APTT 52.2 H* 08/07/22 05:30: WBC 21.7 H*, RBC 4.57 L, Hgb 14.9, Hct 45.7, MCV 99.9 H, MCH 32.5 H, MCHC 32.6, RDW 13.1, Plt Count 336, MPV 9.1, Neut % (Auto) 90.2 H, Lymph % (Auto) 2.7 L, [place] % (Auto) 6.5, Eos % (Auto) 0.2, Baso % (Auto) 0.2, Neut # (Auto) 19.6 H, Lymph # (Auto) 0.6 L, [place] # (Auto) 1.4 H, Eos # (Auto) 0.1, Baso # (Auto) 0.0, Total Counted 100, Neutrophils % (Manual) 93 H, Lymphocytes % (Manual) 4 L, Monocytes % (Manual) 3, Platelet Estimate Normal, RBC Morphology Normal 08/07/22 05:30: Sodium 120 L, Potassium 3.5 D, C
--- NOTE | 2022-08-07 08:58 | PC.NURSE ---
Notified Josh in pharmacy of pt's ptt result; He states he will adjust order as necessary;
--- NOTE | 2022-08-07 09:00 | EXP.CARD.PN ---
Subjective Subjective Date: 08/07/22 Time: 08:00 Principal diagnosis: Acute respiratory failure, influenza A, COPD exacerbation, elevated troponi Interval history: Patient reports feeling better this morning shortness of breath has greatly improved. Patient has diuresed 2650. Maintaining oxygen saturation on nasal cannula. Continues to deny chest pain. Labs as below: WBC 21.7, sodium 128, creatinine down to 1.00, liver enzymes elevated AST 302 ALT 169. Patient is hypotensive this morning with systolic in the 80s, advised nurses to hold Entresto as needed for hypotension. Exam Data for Last 24 hours Vital signs and Labs for Last 24 Hours: Temp Pulse Resp BP Pulse Ox FiO2 97.5 F L 108 H 17 85/56 L 93 L 50 08/07/22 07:56 08/07/22 06:03 08/07/22 06:00 08/07/22 06:00 08/07/22 06:03 08/06/22 06:00 Laboratory Results - last 24 hr 08/06/22 11:04: WBC 27.0 H* D, RBC 4.64, Hgb 15.6, Hct 47.6, MCV 102.6 H, MCH 33.6 H, MCHC 32.7, RDW 13.2, Plt Count 316 D, MPV 8.1, Neut % (Auto) 93.2 H, Lymph % (Auto) 2.7 L, [place] % (Auto) 3.1, Eos % (Auto) 0.8, Baso % (Auto) 0.3, Neut # (Auto) 25.2 H, Lymph # (Auto) 0.7, [place] # (Auto) 0.8, Eos # (Auto) 0.2, Baso # (Auto) 0.1, Total Counted 100, Neutrophils % (Manual) 93 H, Lymphocytes % (Manual) 5 L, Monocytes % (Manual) 1 L, Eosinophils % (Manual) 1, Platelet Estimate Normal, Macrocytosis 1+ 08/06/22 11:27: Sodium 133 L, Potassium 5.4 H D, Chloride 100, Carbon Dioxide 18 L, Anion Gap 20.4 H, BUN 22 H D, Creatinine 1.10 D, Estimated Creat Clear 61, Estimated GFR 69, Est GFR ( Amer) 83 D, Glucose 162 H D, Calcium 8.7, Total Bilirubin 0.6, AST 434 H* D, ALT 198 H D, Alkaline Phosphatase 76, Total Protein 7.1, Albumin 4.2, Globulin 2.9, Albumin/Globulin Ratio 1.4 08/06/22 12:59: APTT 63.8 H* 08/06/22 12:59: Vitamin B12 > 1000 H, Folate 16.10 08/06/22 18:30: APTT 51.8 H* 08/07/22 02:10: APTT 52.2 H* 08/07/22 05:30: WBC 21.7 H*, RBC 4.57 L, Hgb 14.9, Hct 45.7, MCV 99.9 H, MCH 32.5 H, MCHC 32.6, RDW 13.1, Plt Count 336, MPV 9.1, Neut % (Auto) 90.2 H, Lymph % (Auto) 2.7 L, [place] % (Auto) 6.5, Eos % (Auto) 0.2, Baso % (Auto) 0.2, Neut # (Auto) 19.6 H, Lymph # (Auto) 0.6 L, [place] # (Auto) 1.4 H, Eos # (Auto) 0.1, Baso # (Auto) 0.0, Total Counted 100, Neutrophils % (Manual) 93 H, Lymphocytes % (Manual) 4 L, Monocytes % (Manual) 3, Platelet Estimate Normal, RBC Morphology Normal 08/07/22 05:30: Sodium 120 L, Potassium 3.5 D, Chloride 88 L, Carbon Dioxide 29, Anion Gap 6.5, BUN 22 H, Creatinine 1.00, Estimated Creat Clear 67, Estimated GFR 77, Est GFR ( Amer) 93, Glucose 105 H D, Calcium 8.5, Total Bilirubin 0.2, AST 302 H* D, ALT 169 H, Alkaline Phosphatase 94, Total Protein 6.4, Albumin 3.9, Globulin 2.5, Albumin/Globulin Ratio 1.6 08/07/22 08:30: APTT 46.0 H I & O for Last 24 hours: Intake & Output 08/04/22 08/05/22 08/06/22 08/07/22 23:59 23:59 23:59 23:59 Intake Total 969 / 1357 478 / 478 Output Total 0 / 0 1450 / 1450 1500 / 1500 Balance 0 / 0 -481 / -93 -1022 / -1022 Weight 127 lb 13.89 oz 127 lb 13.89 oz 127 lb 8 oz Constitutional Constitutional: no acute distress *Routine Respiratory Exam Respiratory: Present wheezes and symmetric chest movement *Routine Cardiovascular Exam Cardiovascular: Present RRR, Normal S1 and Normal S2 *Routine Abdominal Exam Abdominal: Present soft and normoactive bowel sounds; Absent tenderness *Routine Extremities Exam Extremities: Present full ROM and normal capillary refill; Absent edema *Routine Skin Exam Skin: Present intact, dry and warm Detailed Neck Exam: Thyroids Thyroid: Absent bruit Progress Note: A&P Assessment and plan (1) Influenza A: Status: Acute (2) Acute hypoxemic respiratory failure: Status: Acute (3) Elevated troponin: Status: Acute (4) Depression: Status: Acute (5) Elevated lactic acid level: Status: Acute (6) Severe sepsis: Status: Acute (7) COPD (chronic obstructive pulmonary disea
--- NOTE | 2022-08-07 09:17 | PC.NURSE ---
Holding entresto yuan smith
--- NOTE | 2022-08-07 09:50 | EXP.PULM.PN ---
Subjective *Date: 08/07/22 *Time: 11:20 Interval history: No acute respiratory events overnight. Patient admits continued improvement in his respiratory status. Pulmonology Exam Inpatient Vital signs and Labs for Last 24 Hours: Temp Pulse Resp BP Pulse Ox FiO2 97.5 F L 95 H 18 85/55 L 94 L 50 08/07/22 07:56 08/07/22 09:00 08/07/22 09:00 08/07/22 09:00 08/07/22 09:00 08/06/22 06:00 Laboratory Results - last 24 hr 08/06/22 11:04: WBC 27.0 H* D, RBC 4.64, Hgb 15.6, Hct 47.6, MCV 102.6 H, MCH 33.6 H, MCHC 32.7, RDW 13.2, Plt Count 316 D, MPV 8.1, Neut % (Auto) 93.2 H, Lymph % (Auto) 2.7 L, [place] % (Auto) 3.1, Eos % (Auto) 0.8, Baso % (Auto) 0.3, Neut # (Auto) 25.2 H, Lymph # (Auto) 0.7, [place] # (Auto) 0.8, Eos # (Auto) 0.2, Baso # (Auto) 0.1, Total Counted 100, Neutrophils % (Manual) 93 H, Lymphocytes % (Manual) 5 L, Monocytes % (Manual) 1 L, Eosinophils % (Manual) 1, Platelet Estimate Normal, Macrocytosis 1+ 08/06/22 11:27: Sodium 133 L, Potassium 5.4 H D, Chloride 100, Carbon Dioxide 18 L, Anion Gap 20.4 H, BUN 22 H D, Creatinine 1.10 D, Estimated Creat Clear 61, Estimated GFR 69, Est GFR ( Amer) 83 D, Glucose 162 H D, Calcium 8.7, Total Bilirubin 0.6, AST 434 H* D, ALT 198 H D, Alkaline Phosphatase 76, Total Protein 7.1, Albumin 4.2, Globulin 2.9, Albumin/Globulin Ratio 1.4 08/06/22 12:59: APTT 63.8 H* 08/06/22 12:59: Vitamin B12 > 1000 H, Folate 16.10 08/06/22 18:30: APTT 51.8 H* 08/07/22 02:10: APTT 52.2 H* 08/07/22 05:30: WBC 21.7 H*, RBC 4.57 L, Hgb 14.9, Hct 45.7, MCV 99.9 H, MCH 32.5 H, MCHC 32.6, RDW 13.1, Plt Count 336, MPV 9.1, Neut % (Auto) 90.2 H, Lymph % (Auto) 2.7 L, [place] % (Auto) 6.5, Eos % (Auto) 0.2, Baso % (Auto) 0.2, Neut # (Auto) 19.6 H, Lymph # (Auto) 0.6 L, [place] # (Auto) 1.4 H, Eos # (Auto) 0.1, Baso # (Auto) 0.0, Total Counted 100, Neutrophils % (Manual) 93 H, Lymphocytes % (Manual) 4 L, Monocytes % (Manual) 3, Platelet Estimate Normal, RBC Morphology Normal 08/07/22 05:30: Sodium 120 L, Potassium 3.5 D, Chloride 88 L, Carbon Dioxide 29, Anion Gap 6.5, BUN 22 H, Creatinine 1.00, Estimated Creat Clear 67, Estimated GFR 77, Est GFR ( Amer) 93, Glucose 105 H D, Calcium 8.5, Total Bilirubin 0.2, AST 302 H* D, ALT 169 H, Alkaline Phosphatase 94, Total Protein 6.4, Albumin 3.9, Globulin 2.5, Albumin/Globulin Ratio 1.6 08/07/22 08:30: APTT 46.0 H I & O for Labs for Last 24 Hours: Intake & Output 08/04/22 08/05/22 08/06/22 08/07/22 23:59 23:59 23:59 23:59 Intake Total 969 / 1357 478 / 478 Output Total 0 / 0 1450 / 1450 1500 / 1500 Balance 0 / 0 -481 / -93 -1022 / -1022 Weight 127 lb 13.89 oz 127 lb 13.89 oz 127 lb 8 oz Constitutional: Present no acute distress Head: Present normocephalic and atraumatic ENT: Present normal exam, normal oropharynx and mucous membranes moist Neck: Present normal inspection and full ROM Respiratory: Present wheezes and able to speak in complete sentences; Absent respiratory distress Cardiac: Present S1/S2, Tachycardia and radial pulses present GI: Present soft and distention; Absent tenderness or guarding Skin: Present intact; Absent cyanosis or jaundice Neuro: Present alert, awake and oriented x 3 Extremities: Present normal inspection; Absent clubbing or cyanosis Psychiatric: Present cooperative and anxious Assessment and Plan *Assessment and plan (1) Acute hypoxemic respiratory failure: Status: Acute Category: Medical Code(s): J96.01 - Acute respiratory failure with hypoxia (2) Influenza A: Status: Acute Category: Medical Code(s): J10.1 - Influenza due to other identified influenza virus with other respiratory manifestations Plan #Influenza pneumonia: #Acute severe COPD Exacerbation: #Acute hypoxic respiratory failure 56-year-old prior smoker greater than [id number] smoking history moderate COPD on Anoro inhaler at home. Flu A Positive. COVID negative. Neutrophilic leukocytosis along with lymphopenia. Significa
[2022-08-07 10:51] LABS: Sodium 126 mmol/L (136-145)
[2022-08-07 10:52] LABS: Anion Gap 12.5 mEq/L (5-15)
[2022-08-07 10:53] LABS: Chloride 95 mmol/L (98-107); Potassium 3.6 mmoL/L (3.5-5.1); Sodium 128 mmol/L (136-145)
[2022-08-07 10:55] LABS: Alanine Aminotransferase 150 U/L (12-78); Aspartate Amino Transferase 244 U/L (17-59); Blood Urea Nitrogen 21 mg/dl (9-20); Creatinine Clearance Estimated 67 mL/min (50-200); Estimated Glomerular Filt Rate 77 ml/min (>60); GFR (African American) 93 ML/MIN (>60)
[2022-08-07 10:56] LABS: Albumin Level 3.4 g/dl (3.5-5.0); Albumin/Globulin Ratio 1.4 (1.1-1.8); Alkaline Phosphatase 76 U/L (38-126); Anion Gap 5.6 mEq/L (5-15); Calcium 8.2 mg/dl (8.4-10.2); Carbon Dioxide 31 mmol/L (22.0-30.0); Globulin 2.4 g/dL (1.3-3.2); Glucose 96 mg/dl (74-100); Total Protein,Serum 5.8 g/dl (6.3-8.2)
[2022-08-07 10:57] LABS: Bilirubin,Total < 0.1 mg/dl (0.2-1.3)
--- NOTE | 2022-08-07 13:12 | IR_ITS ---
APPROVED REPORT Patient Location: Inpatient Instructional Systems Designer: GABRIEL Robles RT (R) PROCEDURES Left heart catheterization Left ventriculogram Selective coronary angiogram INDICATION New onset cardiomyopathy ejection fraction 20% Informed consent was obtained prior to the procedure. COMPLICATIONS None Estimated Blood Loss: Less than 10 mls TECHNIQUE One percent lidocaine used to anesthetize the right groin. The right femoral artery was accessed via the Seldinger technique and a 5 Indonesian sheath was placed in the right femoral artery. A JL 4, JR4 catheter were used to perform left heart catheterization, left ventriculogram selective coronary angiography as well as selective engagement of the 2 vein grafts and the left internal mammary artery. At the end of the procedure the patient was transferred to the postop holding area in stable condition for sheath removal. ANGIOGRAPHIC RESULTS The left main artery Normal The left anterior descending artery Normal The circumflex artery Normal The right coronary artery Dominant normal The HERNANDEZ ventriculogram reveals Dilated globally hypokinetic ejection fraction 20% The left ventricular end-diastolic pressure 10 mmHg IMPRESSION Normal coronary arteries Dilated ventricle consistent with cardiomyopathy most likely alcohol cardiomyopathy Compensated heart failure with normal LVEDP PLAN 1. Standard therapy for systolic congestive heart failure 2. Consider LifeVest 3. Absolute alcohol abstinence Electronically signed by : Sid Pemberton MD 08/07/2022 13:37:03
[2022-08-07 15:04] LABS: PTT Heparin (inpatient only) 105.6 Seconds (23.6-34.0)
--- NOTE | 2022-08-07 17:43 | PC.NURSE ---
Pt is alert and oriented x4. Lungs with some wheezes and rhonchi, diminished throughout. Frequent productive cough with light green sputum noted. Specimen collected and sent to lab. He remains on RA and tolerating well. He's been NSR/ST on telemetry. Telfa and tegaderm in place. No drainage or hematoma noted. He denies any complaints at this time. Bed is locked and in the lowest position, call light is within reach.
[2022-08-08] VITALS: BP 91/59; PULSE 75; PULSE 80; RESP 16; TEMP 36.6; O2SAT 95
[2022-08-08 04:00] VITALS: BP 102/61; PULSE 87; PULSE 90; RESP 17; TEMP 36.6; O2SAT 95
[2022-08-08 05:00] VITALS: BMI 18.3
--- NOTE | 2022-08-08 05:48 | PC.NURSE ---
pt has rested intermittently this shift, no complaints of chest pain or SOA, SBP 91-102, HR 75-94, remains on room air with O2 sats 94-95%, telemetry has shown SR
[2022-08-08 08:00] VITALS: BP 96/48; PULSE 77; PULSE 97; RESP 20; TEMP 36.5; O2SAT 94
--- NOTE | 2022-08-08 09:31 | EXP.ACUTE.PN ---
Subjective *Date: 08/08/22 *Time: 09:31 Interval history: Clinically he is much improved. He is less short of breath. He is more comfortable. His cardiac catheterization revealed normal coronary arteries but an ejection fraction of only 20%. Appropriate medications have been initiated. I discussed the findings with the patient. We discussed his alcohol intake. I encouraged him to be up in a chair today. Medical Exam Vital signs and Labs for Last 24 Hours: Vital Signs Temp Pulse Pulse Resp BP Pulse Ox 08/08/22 08:00 97.7 F 77 20 96/48 L 94 L 08/08/22 04:00 90 08/08/22 04:00 97.9 F 87 17 102/61 L 95 08/08/22 00:00 80 08/08/22 00:00 97.8 F 75 16 91/59 L 95 08/07/22 20:00 90 08/07/22 20:30 94 H 18 101/64 L 94 L 08/07/22 20:00 97 08/07/22 19:30 97.7 F 89 16 98/43 L 97 08/07/22 18:30 89 16 99/66 L 96 08/07/22 16:30 85 16 95/56 L 94 L 08/07/22 16:16 90 08/07/22 17:30 105 H 18 100/66 L 91 L 08/07/22 16:00 95 H 16 86/54 L 94 L 08/07/22 15:30 96 H 14 88/51 L 94 L 08/07/22 15:00 96 H 18 107/45 L 93 L 08/07/22 14:45 99 H 18 104/57 L 93 L 08/07/22 14:30 94 H 16 101/62 L 94 L 08/07/22 14:15 98 H 18 100/49 L 94 L 08/07/22 14:00 107 H 18 115/66 94 L 08/07/22 12:00 100 H 08/07/22 13:35 18 08/07/22 13:33 18 08/07/22 11:11 97.4 F L 93 H 16 94/62 L 99 08/07/22 09:54 94 H 08/07/22 09:54 99 H 08/07/22 09:54 96 Intake and Output 08/07/22 08/08/22 08/08/22 19:59 03:59 11:59 Intake Total 300 / 540 240 / 540 Output Total 0 / 1050 450 / 1050 600 / 1050 Balance 300 / -510 -450 / -510 -360 / -510 Intake: Intake, Oral Amount 300 / 540 240 / 540 Output: Output, Urine Amount 0 / 1050 450 / 1050 600 / 1050 Other: Number of Unmeasured Voids 1 1 Weight 127 lb 7.893 oz 134 lb 4.8 oz Patient Weight 08/08/22 11:59 Weight 134 lb 4.8 oz Laboratory Results - last 24 hr 08/07/22 05:30: Sodium 126 L, Anion Gap 12.5 08/07/22 10:34: Sodium 128 L, Potassium 3.6, Chloride 95 L, Carbon Dioxide 31 H, Anion Gap 5.6, BUN 21 H, Creatinine 1.00, Estimated Creat Clear 67, Estimated GFR 77, Est GFR ( Amer) 93, Glucose 96, Calcium 8.2 L, Total Bilirubin < 0.1 L, AST 244 H, ALT 150 H, Alkaline Phosphatase 76, Total Protein 5.8 L, Albumin 3.4 L D, Globulin 2.4, Albumin/Globulin Ratio 1.4 08/07/22 14:15: APTT 105.6 H* I & O for Labs for Last 24 Hours: Intake & Output 08/05/22 08/06/22 08/07/22 08/08/22 11:59 11:59 11:59 11:59 Intake Total 0 / 0 1447 / 1447 540 / 540 Output Total 300 / 300 2650 / 2650 1050 / 1050 Balance -300 / -300 -1203 / -1203 -510 / -510 Weight 127 lb 13.89 oz 127 lb 8 oz 134 lb 4.8 oz Microbiology Reports for the Last 24 Hours: Microbiology 08/05/22 17:35 Blood - Not Otherwise Specified Blood Culture - Preliminary NO GROWTH AFTER 48 HOURS 08/05/22 17:35 Blood - Not Otherwise Specified Blood Culture - Preliminary NO GROWTH AFTER 48 HOURS 08/07/22 13:10 Sputum - Expectorated Sputum Gram Stain - Final Head: Present normocephalic Neck: Present normal inspection Respiratory: Present decreased breath sounds Cardiac: Present Reg Rate and Rhythm GI: Present soft; Absent tenderness Rectal (male): Present deferred (male): Present deferred Extremities: Absent edema Skin: Present intact Neuro: Present alert and oriented x 3 Assessment and Plan *Assessment and plan (1) Acute systolic heart failure: Status: Acute Category: Medical Code(s): I50.21 - Acute systolic (congestive) heart failure (2) Acute exacerbation of chronic obstructive airways disease: Status: Acute Category: Medical Code(s): J44.1 - Chronic obstructive pulmonary disease with (acute) exacerbation (3) Influenza A: Status: Acute
[2022-08-08 12:00] VITALS: BP 118/84; PULSE 104; PULSE 91; RESP 20; TEMP 36.8; O2SAT 94
[2022-08-08 16:00] VITALS: BP 97/62; PULSE 88; PULSE 90; RESP 20; TEMP 36.6; O2SAT 96
--- NOTE | 2022-08-08 17:11 | PC.NURSE ---
Pt has done fine this shift. Pt remains on RA. Pt refused to get out of bed and into chair this shift. Pt CIWA scores have been between 0-1. Serax given per MAR. NSR on tele. No other acute changes or complaints.
[2022-08-08 20:00] VITALS: BP 108/71; PULSE 75; PULSE 80; RESP 18; TEMP 36.6; O2SAT 97
[2022-08-09] VITALS: BP 110/73; PULSE 70; PULSE 84; RESP 20; TEMP 36.3; O2SAT 94
[2022-08-09 04:00] VITALS: BP 108/60; PULSE 100; PULSE 91; RESP 18; TEMP 36.5; O2SAT 97
[2022-08-09 05:00] VITALS: BMI 18.2
[2022-08-09 08:00] VITALS: BP 92/70; PULSE 116; RESP 19; TEMP 36.4; O2SAT 94
--- NOTE | 2022-08-09 08:28 | EXP.ACUTE.PN ---
Subjective *Date: 08/09/22 *Time: 08:28 Interval history: Patient states he is feeling better this am. Breathing has improved. Still coughing some. No oxygen has been needed. He denies any pain. Slept well and is eating well. Medical Exam Vital signs and Labs for Last 24 Hours: Vital Signs Temp Pulse Pulse Resp BP Pulse Ox 08/09/22 00:00 70 08/09/22 04:00 100 H 08/09/22 04:00 97.7 F 91 H 18 108/60 L 97 08/08/22 20:00 80 08/09/22 00:00 97.4 F L 84 20 110/73 94 L 08/08/22 20:00 97.9 F 75 18 108/71 L 97 08/08/22 16:00 97.9 F 90 20 97/62 L 96 08/08/22 16:00 88 08/08/22 12:00 91 H 08/08/22 12:00 98.3 F 104 H 20 118/84 94 L Intake and Output 08/08/22 08/09/22 08/09/22 19:59 03:59 11:59 Intake Total 720 / 840 120 / 840 Output Total 300 / 850 550 / 850 Balance 420 / -10 -430 / -10 Intake: Intake, Oral Amount 720 / 840 120 / 840 Output: Output, Urine Amount 300 / 850 550 / 850 Other: Number of Voids 2 Weight 133 lb 4 oz Patient Weight 08/09/22 11:59 Weight 133 lb 4 oz I & O for Labs for Last 24 Hours: Intake & Output 08/06/22 08/07/22 08/08/22 08/09/22 11:59 11:59 11:59 11:59 Intake Total 0 / 0 1447 / 1447 540 / 540 840 / 840 Output Total 300 / 300 2650 / 2650 1050 / 1050 850 / 850 Balance -300 / -300 -1203 / -1203 -510 / -510 -10 / -10 Weight 127 lb 13.89 oz 127 lb 8 oz 134 lb 4.8 oz 133 lb 4 oz Microbiology Reports for the Last 24 Hours: Microbiology 08/07/22 13:10 Sputum - Expectorated Sputum Gram Stain - Final 08/07/22 13:10 Sputum - Expectorated Sputum Sputum Culture - Preliminary Head: Present normocephalic Neck: Present normal inspection Respiratory: Present decreased breath sounds Cardiac: Present Reg Rate and Rhythm GI: Present soft; Absent tenderness Extremities: Absent edema Skin: Present intact Neuro: Present alert and oriented x 3 Assessment and Plan *Assessment and plan (1) Acute systolic heart failure: Status: Acute Category: Medical Code(s): I50.21 - Acute systolic (congestive) heart failure (2) Acute exacerbation of chronic obstructive airways disease: Status: Acute Category: Medical Code(s): J44.1 - Chronic obstructive pulmonary disease with (acute) exacerbation (3) Influenza A: Status: Acute Category: Medical Code(s): J10.1 - Influenza due to other identified influenza virus with other respiratory manifestations (4) Acute hypoxemic respiratory failure: Status: Acute Category: Medical Code(s): J96.01 - Acute respiratory failure with hypoxia (5) Cardiomyopathy: Status: Acute Category: Medical Code(s): I42.9 - Cardiomyopathy, unspecified (6) Alcohol abuse: Status: Acute Category: Social Hx Code(s): F10.10 - Alcohol abuse, uncomplicated (7) Elevated troponin: Status: Acute Category: Medical Code(s): R77.8 - Other specified abnormalities of plasma proteins Plan Medications have been initiated for systolic congestive heart failure and cardiomyopathy. Patient is improving. Will discuss further care with Dr. Weldon and order labs this am.
--- NOTE | 2022-08-09 10:01 | P.PN_ITS ---
Subjective *Date: 08/09/22 *Time: 14:18 Interval history: No acute respiratory vents overnight. Patient denies any new respiratory complaints. Continues to remain on room air. Pulmonology Exam Inpatient Vital signs and Labs for Last 24 Hours: Temp Pulse Resp BP Pulse Ox FiO2 97.6 F 116 H 19 92/70 L 94 L 50 08/09/22 08:00 08/09/22 08:00 08/09/22 08:00 08/09/22 08:00 08/09/22 08:00 08/06/22 06:00 I & O for Labs for Last 24 Hours: Intake & Output 08/06/22 08/07/22 08/08/22 08/09/22 23:59 23:59 23:59 23:59 Intake Total 969 / 1357 778 / 778 960 / 1080 360 / 360 Output Total 1450 / 1450 1950 / 1950 900 / 900 550 / 550 Balance -481 / -93 -1172 / -1172 60 / 180 -190 / -190 Weight 127 lb 13.89 oz 127 lb 7.893 oz 134 lb 4.8 oz 133 lb 4 oz Microbiology Reports for the Last 24 Hours: Microbiology 08/07/22 13:10 Sputum - Expectorated Sputum Gram Stain - Final 08/07/22 13:10 Sputum - Expectorated Sputum Sputum Culture - Preliminary Constitutional: Present no acute distress Head: Present normocephalic and atraumatic ENT: Present normal exam, normal oropharynx and mucous membranes moist Neck: Present normal inspection and full ROM Respiratory: Present wheezes and able to speak in complete sentences; Absent respiratory distress Cardiac: Present S1/S2, Tachycardia and radial pulses present GI: Present soft and distention; Absent tenderness or guarding Skin: Present intact; Absent cyanosis or jaundice Neuro: Present alert, awake and oriented x 3 Extremities: Present normal inspection; Absent clubbing or cyanosis Psychiatric: Present cooperative and anxious Assessment and Plan *Assessment and plan (1) Acute hypoxemic respiratory failure: Status: Acute Category: Medical Code(s): J96.01 - Acute respiratory failure with hypoxia (2) Influenza A: Status: Acute Category: Medical Code(s): J10.1 - Influenza due to other identified influenza virus with other respiratory manifestations Plan #Influenza pneumonia: #Acute severe COPD Exacerbation: #Acute hypoxic respiratory failure 56-year-old prior smoker greater than 80-vpnh-hsml smoking history moderate COPD on Anoro inhaler at home. Flu A Positive. COVID negative. Neutrophilic leukocytosis along with lymphopenia. Significant worsening this m orning at 27.0. Chest X-ray personally reviewed, no acute pulmonary infiltrates/ dense consolidation, no change from prior. Patient on admission was initiated on ceftriaxone, azithromycin along with methylprednisolone 125mg every 6 hrs. He was also started on Tamiflu. Interval update: Continues to remain on room air. No labs for review today. Plan: -Continue ceftriaxone azithromycin pending sputum cultures, can be weaned to levofloxacin to complete 5 day course upon discharge. Follow with sputum cultures -Continue Stiolto inhaler along with continuation of DuoNebs every 6 hours on as-needed basis -Continue prednisone 40 mg daily x 5 days -Continue Tamiflu x total 5 days #Thank you for involving pulmonary in this patient care. Will follow in 1-2 weeks in pulmonary clinic
--- NOTE | 2022-08-09 10:02 | XR_ITS ---
FINAL REPORT CLINICAL HISTORY: PNM F/U COMPARISON: 08/05/2022 FINDINGS: A single view of the chest was obtained. The heart is normal in size. The mediastinum is unremarkable. There is no active disease. There is no pleural effusion. There is no pneumothorax. There is no acute osseous abnormality. IMPRESSION: Stable chest as compared to 08/05/2022 Reviewed, Interpreted and Dictated by Son Rockwell III, MD Transcribed by Kusum Benson Authenticated and [facility]
[2022-08-09 10:28] LABS: Basophils # 0.2 K/mm3 (0-0.2); Basophils % 1.3 % (0.1-2.0); Eosinophils # 0.1 K/mm3 (0.0-0.4); Eosinophils % 0.9 % (0.1-12.0); Hematocrit 53.4 % (42.0-52.0); Hemoglobin 17.6 g/dL (14.1-18.0); Lymphocytes # 2.5 K/mm3 (0.7-4.5); Lymphocytes % 18.7 % (10-50); Mean Corpuscular HGB Conc 32.9 g/dL (31.8-35.4); Mean Corpuscular Hemoglobin 33.2 pg (27.0-31.2); Mean Corpuscular Volume 100.8 fl (80-94); Mean Platelet Volume 7.7 fl (7.4-10.4); Monocytes # 1.2 K/mm3 (0.1-1.0); Monocytes % 8.5 % (1.7-9.3); Neutrophils # 9.5 K/mm3 (1.8-7.8); Neutrophils % 70.6 % (37.0-80.0); Platelet Count 346 K/mm3 (142-424); Red Cell Distribution Width 13.1 % (11.5-17.5); White Blood Count 13.4 K/mm3 (4.8-10.8)
[2022-08-09 10:46] LABS: Chloride 101 mmol/L (98-107); Potassium 4.1 mmoL/L (3.5-5.1); Sodium 135 mmol/L (136-145)
[2022-08-09 10:48] LABS: Blood Urea Nitrogen 15 mg/dl (9-20); Creatinine Clearance Estimated 77 mL/min (50-200); Estimated Glomerular Filt Rate 87 ml/min (>60); GFR (African American) 105 ML/MIN (>60)
[2022-08-09 10:49] LABS: Alanine Aminotransferase 111 U/L (12-78); Albumin Level 3.5 g/dl (3.5-5.0); Albumin/Globulin Ratio 1.4 (1.1-1.8); Alkaline Phosphatase 73 U/L (38-126); Anion Gap 7.1 mEq/L (5-15); Aspartate Amino Transferase 72 U/L (17-59); Bilirubin,Total 0.3 mg/dl (0.2-1.3); Calcium 9.4 mg/dl (8.4-10.2); Carbon Dioxide 31 mmol/L (22.0-30.0); Globulin 2.5 g/dL (1.3-3.2); Glucose 90 mg/dl (74-100)
[2022-08-09 12:00] VITALS: BP 98/68; PULSE 95; RESP 20; TEMP 36.4; O2SAT 97
--- NOTE | 2022-08-09 12:42 | PC.NURSE ---
Addendum entered by Carol Dinero RN 08/09/22 13:26: QUENTIN CALLED BACK AND STATED PT WAS GOOD TO GO HOME. [facility] HOWEVER PT WOULD STILL LIKE TO CONTINUE WITH SEEING . PT HAS BEEN DISCHARGED AND CONTACT INFO WAS GIVEN TO QUENTIN TO GIVE TO [employer] WHO WILL BE FITTING PT FOR LIFE VEST AT HOME. Original Note: PT IS READY TO BE DISCHARGED HOWEVER WITH HIS INSURANCE THERE ARE SOME ISSUES WITH GETTING HIS LIFE VEST APPROVED. QUENTIN THE LIFE VEST REP STATED THEY WOULD BE ABLE TO [facility] IF PT COULD CALL AND GET A FOLLOW UP APPOINTMENT WITH THE PET CARETAKER AT [place]. PT WAS ASKED AND WAS AGREEABLE TO DO THIS. STATED HE WAS OKAY WITH PT BEING DISCHARGED AND BEING FITTED FOR LIFE VEST AT HOME. QUENTIN STATED SHE WOULD CALL ME BACK WITH MORE INFO.
--- NOTE | 2022-08-09 12:50 | HMH.PHAINT1 ---
Pharmacy Intervention Comments: Discharge counseling completed at bedside with the patient. Discussed the indication and possible side effects/mitigation strategies of each new medication and went through continued medications. Explained to the patient that his oseltamivir medication has been discontinued and his prednisone dose was decreased for discharge. Patient verbalized understanding and has no questions or concerns at this time.
--- NOTE | 2022-08-09 15:03 | EXP.DC.SUM ---
General Admission date:: 08/05/22 Discharge date: 08/09/22 HPI HPI HPI: Mr. King is a 56-year-old male patient with depression, insomnia, COPD who presented to [facility] emergency room in respiratory distress.? Following is the ER note: Medical Decision Narrative: In summary this is a 56-year-old male with history of COPD presenting to the emergency department with respiratory distress.? Patient appears unwell on arrival.? Hypoxic in the 80s.? Tachycardic to 105 beats minute.? No hypotension.? Will obtain CBC, CMP, chest x-ray, EKG, troponin profile, procalcitonin, lactic acid, blood cultures Chart review shows that patient was evaluated in our emergency department early this morning, 12 hours ago.? He was diagnosed with influenza A.? Given prescription for Tamiflu and prednisone. Laboratories also markable for elevated white blood cell count at 18,000. Troponin mildly elevated at 0.35. Concern for superimposed bacterial infection.? Patient given 1 g Rocephin and 500 mg azithromycin. On reassessment, patient still requires 5 L by nasal cannula to maintain oxygen saturation greater than 90%.? Tachycardic.? Otherwise stable, conversational.? Believe he would benefit from hospitalization for treatment of acute epoxy respiratory failure in the setting of influenza, history of COPD.? Case discussed with Dr. Suarez on-call for Dr. Weldon.? Will admit. The above is per ER note. Patient was seen by Dr. Suarez last evening and was given? DuoNeb's and 5 mg IV of metoprolol.? He was also given IV fluids for sepsis with blood cultures and repeat lactic acid level.? With elevated troponin he was given IV heparin and 30 mg of Plavix. Patient states he has been ill for the last 3 days with progressive shortness of breath.? He denies having any chest pain.? He states he actually feels he is breathing a little better.? He has been unable to walk due to his respiratory status.? Also to note on 07/30/2022 patient presented to [facility] and was treated for bronchitis with doxycycline and prednisone.? He states that he was well from this episode.? He no longer smokes. This a.m.White blood cell count noted to be 18,100 last p.m. with a left shift.? Renal function is good.? Lactate was elevated at 3.8.? Troponin I has gone from 0.01 up to 6.18.? Chest x-ray showed chronic interstitial changes with no evidence of pneumonia. Hospital Course Hospital Course Hospital Course: The patient was admitted and started on Rocephin and Zithromax. He was also given 125 mg of Solu-Medrol every 6 hours. Cardiology and pulmonology were both consulted. Cardiology saw the patient and his preliminary echo showed an EF of 20%. He was started on diuretics as well as Entresto. They felt his respiratory failure was a combination of acute systolic heart failure along with influenza and his history of COPD. His troponin was elevated in the setting of acute illness and acute systolic heart failure. His EKG was negative for acute ischemic changes. They felt he would need a left heart cath at a later date once hemodynamically stable. Pulmonology saw the patient as well. He increased his nebulization treatments and wanted him weaned to 2 L of nasal oxygen. He wanted him continued on antibiotics and he wanted his methylprednisolone weaned to prednisone 40 mg daily. He was also continued on Tamiflu. By 08/07/2022, he was feeling much better. His cough and shortness of breath improved. He was able be weaned to wear room air with sats in the mid 90s. His white blood cell count was improving and his LFTs improved as well. His blood pressure was low. His Entresto was held due to hypotension. Cardiology did decide to go ahead and do a heart cath. 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 EF was 20% and they recommended alcohol abstinence and considering a LifeVest. The
--- NOTE | 2022-08-12 15:14 | CARE MANAGER ---
Spoke with family member for post-discharge phone interview, patient is dong well and has no needs at this time.
== END 2022-08-09 13:32 | disposition home or self-care (01) | DRG 871 ==
LOC: ER 17:59 → 2ND 20:33
PROVIDERS: Internal Medicine; Nurse Practitioner; Physician Assistant; Admitting Provider Family Medicine; Emergency Provider Emergency Medicine; PCP Family Medicine; Visit Provider Family Medicine
PROC: 4A023N7 Measurement of Cardiac Sampling and Pressure, Left Heart, Percutaneous Approach (ICD-10-PCS; principal; 2022-08-07 13:30)
DX: A41.9 Sepsis, unspecified organism (principal); I50.21 Acute systolic (congestive) heart failure; J10.00 Influenza due to other identified influenza virus with unspecified type of pneumonia; J96.21 Acute and chronic respiratory failure with hypoxia; Z68.1 Body mass index [BMI] 19.9 or less, adult; J44.1 Chronic obstructive pulmonary disease with (acute) exacerbation; E87.1 Hypo-osmolality and hyponatremia; I42.6 Alcoholic cardiomyopathy; R65.20 Severe sepsis without septic shock; F10.10 Alcohol abuse, uncomplicated; F32.A Depression, unspecified; Z87.891 Personal history of nicotine dependence
CPT/HCPCS: 36415; 71045; 80053; 82607; 82746; 82803; 83605; 84145; 84484; 85007; 85025; 85730; 86140; 87040; 87070; 87205; 93005; 93306; 93458; 94640; 94761; 99152; 99291; C1725; C1769; J0456; J0696; J1644; Q9967

== ENCOUNTER → 2022-09-06 12:40 | Outpatient (CLI) | payer OTHER, SELFPAY ==
--- NOTE | 2022-09-06 12:57 | CA_ITS ---
APPROVED REPORT EXAM: Comprehensive 2D, Doppler, and color-flow Echocardiogram Sheet Metal Smith: Lo Gregory CRT Ht: 6 ft 0 in Wt: 141lbs BSA: 1.84 BP: 109/70 mmHg Indications: ef 30-35% 08/06/22, lifevest on, etoh abuse 2D Dimensions LVOT 2.18 cm (M/F) 1.5-2.5 M-Mode Dimensions RVDd 2.79 cm (0.9-2.6) LA Diam 3.12 cm (1.9-4.0) LVDd 4.77 cm (3.5-5.7) Ao Diam 4.09 cm (2.0-3.7) LVDs 3.21 cm (3.5-5.7) IVSd 1.07 cm (0.6-1.1) PWd 0.60 cm (0.6-1.1) EF (Teich) 61.00% FS 32.70% EDV (Teich) 106.00 mL ESV (Teich) 41.30 mL Conclusion 1. Limited echocardiogram was obtained to evaluate left ventricular systolic function 2. Estimated ejection fraction 55% with no regional wall motion abnormality. 3. No significant pericardial effusion noted. Electronically signed by : Ronald Robbins MD 09/06/2022 18:53:16
== END ==
LOC: RT 12:45
PROVIDERS: PCP Family Medicine; Visit Provider Physician Assistant
DX: I50.21 Acute systolic (congestive) heart failure (principal); I42.9 Cardiomyopathy, unspecified; F10.10 Alcohol abuse, uncomplicated; J44.1 Chronic obstructive pulmonary disease with (acute) exacerbation
CPT/HCPCS: 93308

== ENCOUNTER 2023-11-18 09:13 | Emergency (ER) | payer OTHER, SELFPAY ==
[2023-11-18] VITALS (11 sets, daily range): BP systolic 149–163; BP diastolic 90–98; PULSE 80–107; RESP 14–18; TEMP 36.6–36.7; O2SAT 92–100; BMI 20.9
--- NOTE | 2023-11-18 09:27 | ECG_ITS ---
APPROVED REPORT Exam: Resting ECG HR:98 bpm ECG Measurements Heart Rate 98 AXES VT 127 P 86 QRSd 94 QRS 91 QT 333 T 77 QTc 389 Conclusion SINUS RHYTHM RIGHT ATRIAL ENLARGEMENT [0.3mV P-WAVE] BORDERLINE RIGHT AXIS DEVIATION [QRS AXIS > 90] NONSPECIFIC ST & T-WAVE ABNORMALITY ABNORMAL ECG UNCONFIRMED REPORT Electronically signed by : RENATO CAMPBELL, 11/18/2023 10:48:09
--- NOTE | 2023-11-18 09:30 | XR_ITS ---
FINAL REPORT CLINICAL HISTORY: SHORTNESS OF BREATH COMPARISON: 08/09/2022 FINDINGS: Two views of the chest were obtained. The heart size and pulmonary vascularity are within normal limits. The mediastinum is normal. Large lung volumes are present consistent with chronic obstructive pulmonary disease. Mild scarring is present. There is no pneumothorax. The bony thorax is intact. IMPRESSION: No active cardiopulmonary disease. Changes compatible with chronic obstructive pulmonary disease. Reviewed, Interpreted and Dictated by Son Rockwell III, MD Transcribed by Magalie Otoole Authenticated and [facility]
--- NOTE | 2023-11-18 09:31 | PC.NURSE ---
DR COVINGTON AT BEDSIDE
[2023-11-18 09:39] LABS: Basophils # 0.1 K/mm3 (0-0.2); Basophils % 1.1 % (0.1-2.0); Eosinophils # 0.6 K/mm3 (0.0-0.4); Eosinophils % 6.9 % (0.1-12.0); Hematocrit 51.1 % (42.0-52.0); Hemoglobin 16.3 g/dL (14.1-18.0); Lymphocytes # 2.2 K/mm3 (0.7-4.5); Lymphocytes % 23.6 % (10-50); Mean Corpuscular HGB Conc 31.8 g/dL (31.8-35.4); Mean Corpuscular Hemoglobin 32.2 pg (27.0-31.2); Mean Corpuscular Volume 101.1 fl (80-94); Mean Platelet Volume 8.9 fl (7.4-10.4); Monocytes % 10.3 % (1.7-9.3); Neutrophils # 5.3 K/mm3 (1.8-7.8); Platelet Count 404 K/mm3 (142-424); Red Blood Count 5.06 M/mm3 (4.60-6.20); Red Cell Distribution Width 13.1 % (11.5-17.5); White Blood Count 9.2 K/mm3 (4.8-10.8)
--- NOTE | 2023-11-18 09:40 | ED_ITS ---
Discharge Plan Disposition Patient Disposition: Home, Self-Care Condition: Good Prescriptions Prescriptions: No Action Entresto 24-26 mg tablet 1 tab PO BID Qty: 60 4RF fluticasone propionate [Flonase Allergy Relief] 50 mcg/actuation spray,suspension 1 spray INTRANASAL DAILY Rx Instructions: administer into each nostril Stiolto Respimat 2.5-2.5 mcg/actuation Mist 2 puff INHALATION DAILY oxazepam 10 mg Capsule 10 mg PO TID Qty: 90 1RF ipratropium-albuterol 0.5 mg-3 mg(2.5 mg base)/3 mL Solution For Nebulization 3 ml inhalation Q4HP PRN (Reason: Shortness Of Breath) Qty: 120 3RF potassium chloride 20 mEq Tablet,Er Particles/Crystals 20 meq PO DAILY Qty: 30 2RF folic acid 1 mg Tablet 1 mg PO DAILY Qty: 90 1RF thiamine mononitrate (vit B1) 100 mg Tablet 100 mg PO DAILY Qty: 90 1RF Referrals Follow up/Referrals: Lillian Weldon MD [Primary Care Provider] - See instructions Activity Restrictions/Add. Instructions Additional Instructions/Restrictions: You have been evaluated in the ED for your complaints. You may follow-up with your PCP in the next 3 to 5 days. Please return to ED for any new or worsening symptoms. Please continue to use your albuterol inhaler as needed. Clinical Impressions Clinical Impression: COPD exacerbation, Shortness of breath Discharge ED Provider: Matt Shukla Adult HPI General Chief complaint: Shortness of Breath/Dyspnea Stated complaint: soa copd Time Seen by Provider: 11/18/23 09:29 Mode of Arrival: Ambulatory Source of Information: Patient Limitations: No Limitations Description of Symptoms (Recalled from ER Triage Doc. by RN): pt presents to ED with c/o shortness of air, worse with ambulation and excertion. pt reports symptoms ongoing for 1 week. History of Present Illness HPI narrative: 58-year-old male with past medical history significant for alcohol use disorder, COPD, depression, cardiomyopathy presents today for evaluation concerning shortness of breath present over the past 1.5 weeks. Patient states that shortness of breath is worse with ambulation. He has also noted wheezing. Denies having any chest pain, fevers, chills, abdominal pain, dysuria, hematuria. Denies any lower extremity edema. States that he has had to use his inhaler more recently. Is not on home oxygen. No further complaints. Related Data Home Medications Medication Instructions Recorded Confirmed fluticasone propionate 50 1 spray intranasal DAILY COPD 08/05/22 09/10/22 mcg/actuation nasal spray,suspension (Flonase Allergy Relief) tiotropium 2.5 mcg-olodaterol 2.5 2 puff inhalation DAILY COPD 08/07/22 09/10/22 mcg/actuation mist for inhalation (Stiolto Respimat) Previous Rx's Medication Instructions Recorded folic acid 1 mg tablet 1 mg PO DAILY #90 tabs 08/09/22 ipratropium 0.5 mg-albuterol 3 mg 3 ml inhalation Q4HP PRN Shortness 08/09/22 (2.5 mg base)/3 mL nebulization Of Breath #120 mL soln oxazepam 10 mg capsule 10 mg PO TID #90 caps 08/09/22 potassium chloride 20 mEq 20 meq PO DAILY #30 tabs 08/09/22 tablet,extended release(part/cryst) thiamine mononitrate (vit B1) 100 100 mg PO DAILY #90 tabs 08/09/22 mg tablet sacubitril 24 mg-valsartan 26 mg 1 tab PO BID systolic CHF #60 tabs 08/29/22 tablet (Entresto) Allergies Allergy/AdvReac Type Severity Reaction Status Date / Time No Known Allergies Allergy Verified 09/10/22 11:35 [facility] Disclaimer: The information contained in this section may have been updated after the patient was seen, as this information can be updated by other users. Medical History Alcohol abuse COPD (chronic obstructive pulmonary disease) Depression Ulna distal fracture Surgical History H/O right knee surgery History of ankle surgery No significant past surgical history Family History Other No significant family history Social History Smoking Status: Former smoker alcohol intake: never current occupational status: disabled Travel in the last 8 weeks: None ROS Obtained: Yes All systems reviewed & no additional complaints except as documented Physical Exam General General appearance: alert and in no apparent distress Head Head exam: atraumatic and normocephalic Eye Eye exam: Present normal appearance, PERRL and EOMI ENT ENT exam: Present normal oropharynx and mucous membranes moist Neck Neck exam: Present full ROM; Absent meningismus Respiratory Respiratory exam: Present wheezes (Diffuse expiratory); Absent respiratory distress, stridor or accessory muscle use Cardiovascular Cardiovascular exam: Present normal rhythm Abdominal Exam Abdominal exam: Present soft; Absent distention, tenderness, guarding, rebound or rigidity Neurological Exam Neurological exam: Present alert, oriented X3 and CN II-XII intact; Absent motor sensory deficit Psychiatric Psychiatric exam: Present normal affect and normal mood Skin Skin exam: Present warm and dry Medical Decision Making Medical Records Medical records reviewed: Yes I reviewed the patient's medical records. Reg Inquiry Pt receiving controlled substance: No Reg was queried for this patient: No Vital Signs: 11/18/23 09:14 11/18/23 09:23 11/18/23 09:30 Temperature 98.0 F Temperature Source Oral Pulse Rate 105 H 105 H Pulse Rate [Left Radial] 107 H Respiratory Rate 14 Blood Pressure 149/93 H 160/90 H Blood Pressure [Right Arm] 149/93 H Blood Pressure Mean 112 109 Blood Pressure Mean [Right Arm] 111 02 Sat by Pulse Oximetry 99 100 95 Oxygen Delivery Method Room Air 11/18/23 09:45 11/18/23 10:30 11/18/23 11:00 Temperature Temperature Source Pulse Rate 87 97 H 94 H Pulse Rate [Left Radial] Respiratory Rate Blood Pressure 149/96 H 155/93 H 153/95 H Blood Pressure [Right Arm] Blood Pressure Mean 113 Blood Pressure Mean [Right Arm] 02 Sat by Pulse Oximetry 92 L 95 94 L Oxygen Delivery Method Room Air Room Air 11/18/23 11:30 11/18/23 12:30 Temperature Temperature Source Pulse Rate 80 93 H Pulse Rate [Left Radial] Respiratory Rate Blood Pressure 156/97 H 156/98 H Blood Pressure [Right Arm] Blood Pressure Mean 120 Blood Pressure Mean [Right Arm] 02 Sat by Pulse Oximetry 94 L 97 Oxygen Delivery Method Room Air Lab Data Lab Results 11/18/23 09:20: WBC 9.2, RBC 5.06, Hgb 16.3, Hct 51.1, MCV 101.1 H, MCH 32.2 H, MCHC 31.8, RDW 13.1, Plt Count 404, MPV 8.9, Neut % (Auto) 58.0, Lymph % (Auto) 23.6, Pickett % (Auto) 10.3 H, Eos % (Auto) 6.9, Baso % (Auto) 1.1, Neut # (Auto) 5.3, Lymph # (Auto) 2.2, Pickett # (Auto) 1.0, Eos # (Auto) 0.6 H, Baso # (Auto) 0.1, Sodium 138, Potassium 4.7, Chloride 106, Carbon Dioxide 22, Anion Gap 14.7, BUN 10, Creatinine 1.10, Estimated Creat Clear 72, Estimated GFR 69, Est GFR ( Amer) 83, Glucose 104 H, Calcium 9.7, Magnesium 2.5 H, Total Bilirubin 1.2, AST 54, ALT 31, Alkaline Phosphatase 50, Troponin I 0.02, NT-Pro-B Natriuret Pep 42.2, Total Protein 8.3 H D, Albumin 5.0, Globulin 3.3 H, Albumin/Globulin Ratio 1.5 11/18/23 09:45: VBG pH 7.31, VBG pCO2 43.5, VBG pO2 26.5 L, VBG HCO3 21.6 L, VBG Total CO2 22.9 L, VBG O2 Saturation 48.8 L, VBG Base Excess -4.6 L 11/18/23 09:47: VBG Lactic Acid 1.5 11/18/23 12:17: Troponin I < 0.01 11/18/23 09:20 11/18/23 09:20 Orders (Tests/Meds): ED MEDICATIONS Generic Name Dose Route Start Last Admin Trade Name Freq PRN Reason Stop Dose Admin Sodium Chloride 10 ml 11/18/23 09:30 Sodium Chloride 0.9% 10ml Flush Syringe IV 12/18/23 09:29 NEEDED PRN Maintain IV Site Discontinued Medications Generic Name Dose Route Start Last Admin Trade Name Freq PRN Reason Stop Dose Admin Albuterol/Ipratropium 9 ml 11/18/23 09:41 11/18/23 09:45 Ipratropium/Albuterol 3 Ml Neb IH 11/18/23 09:42 9 ml ONCE ONE Administration ORDERS Category Date Time Status CXR 2 view (NOT portable) [XR chest 2V] Stat Exams 11/18/23 09:30 Completed BNP [Brain Natriuretic Peptide] Stat Lab 11/18/23 09:20 Completed Complete Blood Count Auto Diff Stat Lab 11/18/23 09:20 Completed Comprehensive Metabolic Panel Stat Lab 11/18/23 09:20 Completed Lactate Venous Routine Lab 11/18/23 09:47 Completed Magnesium Stat Lab 11/18/23 09:20 Completed Troponin I Q3H Lab 11/18/23 12:17 Completed Troponin I Q3H Lab 11/18/23 15:45 Ordered Troponin I Stat Lab 11/18/23 09:20 Completed VBG [Venous Blood Gas] Stat RT 11/18/23 09:45 Completed ECG Data Tracing #1: I reviewed this ECG and interpreted as documented below: EKG personally interpreted by me. Normal sinus rhythm with a rate of [address] elevations noted. HEART Score History (anamnesis): Slightly suspicious ECG: Non-specific disturbance Age: 45-65 years Risk factors: 1-2 risk factors Troponin: 1-3x normal limit HEART Score: 4 Medical Decision Narrative: 58-year-old male with past medical history significant for alcohol use disorder, COPD, depression, cardiomyopathy presents today for evaluation concerning shortness of breath present over the past 1.5 weeks. Patient states that shortness of breath is worse with ambulation. He has also noted wheezing. On assessment, the patient was hemodynamically stable and in no acute distress. Appropriate oxygenation on room air. Chest auscultation was with diffuse wheezing bilaterally. Abdomen soft nondistended and nontender to palpation. No extremity edema. Other physical exam findings unremarkable differential diagnoses include not limited to COPD exacerbation, ACS, pleural effusion, pneumonia, among others CBC today has been nonactionable. CMP was also nonactionable. His VBG showed a pCO2 of 43.5, no CO2 retention. Bicarb 21.6. BNP within range at 42.2. Initial troponin 0.02. Second troponin less than 0.01. Chest x-ray did not show any acute cardiopulmonary disease processes. Patient was given 3 DuoNeb treatments while in the ED and on reassessment his wheezing was significantly improved as well as his breathing. He was able to ambulate without dropping his oxygen saturations and without increased shortness of breath. I discussed ED workup and results with patient and current plan to discharge home with PCP melissa bautista. Provided with return ED precautions. He verbalized understanding and agreement with plan and was ultimately discharged home in medically stable and in no acute distress. Critical Care Critical Care Time Critical Care Time: No
[2023-11-18] MEDS: IPRATROPIUM/ALBUTEROL 3 ML NEB 9 ML IH (09:45)
--- NOTE | 2023-11-18 09:45 | PC.NURSE ---
RT notified of VBG order
[2023-11-18 09:49] LABS: Alanine Aminotransferase 31 U/L (12-78); Albumin/Globulin Ratio 1.5 (1.1-1.8); Alkaline Phosphatase 50 U/L (38-126); Anion Gap 14.7 mEq/L (5-15); Aspartate Amino Transferase 54 U/L (17-59); Bilirubin,Total 1.2 mg/dl (0.2-1.3); Blood Urea Nitrogen 10 mg/dl (9-20); Calcium 9.7 mg/dl (8.4-10.2); Carbon Dioxide 22 mmol/L (22.0-30.0); Chloride 106 mmol/L (98-107); Creatinine Clearance Estimated 72 mL/min (50-200); Estimated Glomerular Filt Rate 69 ml/min (>60); GFR (African American) 83 ML/MIN (>60); Globulin 3.3 g/dL (1.3-3.2); Glucose 104 mg/dl (74-100); Magnesium 2.5 mg/dl (1.6-2.3); Potassium 4.7 mmoL/L (3.5-5.1); Sodium 138 mmol/L (136-145); Total Protein,Serum 8.3 g/dl (6.3-8.2)
[2023-11-18 09:50] LABS: VBG Base Excess -4.6 mmol/L (-2.4-2.3); VBG HCO3 21.6 mmol/L (23-30); VBG Oxygen Saturation 48.8 % (50-70); VBG PCO2 43.5 mmol/L (35-51); VBG PH 7.31 mmol/L (7.31-7.41); VBG PO2 26.5 mmol/L (28-40); VBG Total CO2 22.9 mmol/L (23-27)
[2023-11-18 09:51] LABS: Lactate Venous 1.5 mmol/L (0.4-2.0)
--- NOTE | 2023-11-18 09:54 | PC.NURSE ---
rounded on pt at this time. pt getting breathing treatment, no needs voiced at this time
[2023-11-18 10:00] LABS: Troponin I 0.02 ng/ml (0.00-0.034)
[2023-11-18 10:24] LABS: NT Pro Brain Natriuretic Pep. 42.2 pg/mL (0-125)
--- NOTE | 2023-11-18 11:12 | PC.NURSE ---
Rounded on pt to see if they had any needs. no needs at this time
--- NOTE | 2023-11-18 12:18 | PC.NURSE ---
Second trop drawn and sent to lab
[2023-11-18 12:47] LABS: Troponin I < 0.01 ng/ml (0.00-0.034)
== END 2023-11-18 13:28 | disposition home or self-care (01) ==
PROVIDERS: Emergency Provider Emergency Medicine; PCP Family Medicine
DX: J44.1 Chronic obstructive pulmonary disease with (acute) exacerbation (principal); R06.02 Shortness of breath; I42.9 Cardiomyopathy, unspecified; Z87.891 Personal history of nicotine dependence
CPT/HCPCS: 71046; 80053; 82803; 83605; 83735; 83880; 84484; 85025; 93005; 99284